=== PATIENT | female | born 1985 | race Caucasian/White ===

== ENCOUNTER 2021-04-26 09:47 | Outpatient (REF) | payer OTHER, SELFPAY | END 2021-04-26 09:48 | disposition home or self-care (01) | LOC: HO.HMGCLDS 09:47 | PROVIDERS: Visit Provider Internal Medicine | DX: Z20.822 Contact with and (suspected) exposure to COVID-19 (principal) | CPT/HCPCS: C9803; U0003; U0005 ==

== ENCOUNTER 2022-03-01 13:55 | Outpatient (REF) | payer OTHER, SELFPAY ==
[2022-03-01 16:35] LABS: MANUAL DIFF FLAG NO
[2022-03-01 16:41] LABS: Appearance Urine Clear; Color Urine Yellow; Glucose Urine UA Negative (Negative); Leukocyte Esterase Urine Negative (Negative); Nitrite Urine Negative (Negative); Specific Gravity - Urine 1.025 (1.005-1.025); UMIC TRIGGER UACC YES; Urine Blood Moderate (2+) (Negative); Urine Ketones Negative (Negative); Urine Protein Negative (Neg-Trace)
[2022-03-01 16:46] LABS: Basophils Percent Auto 0.6 % (0-2); Eosinophils Absolute Auto 0.2 X10*3/uL (0.0-0.4); Eosinophils Percent Auto 2.2 % (0-4); Hematocrit 37.1 % (37.0-47.0); Hemoglobin 12.3 g/dl (12.0-16.0); Imm Gran Abs Auto 0.05 X10*3/uL (0.00-0.03); Imm Gran Pct Auto 0.7 % (0.0-0.4); Lymphocytes Absolute Auto 2.6 X10*3/uL (1.2-4.9); Mean Corpuscular HGB Conc 33.2 g/dl (31.0-35.0); Mean Corpuscular Hemoglobin 29.5 pg (27.0-33.0); Mean Platelet Volume 9.7 fL (9.4-12.3); Monocytes Absolute Auto 0.5 X10*3/uL (0.1-1.2); Monocytes Percent Auto 6.6 % (2-11); Neutrophils Absolute Auto 3.5 x10*3/uL (2.0-8.3); Neutrophils Percent Auto 51.9 % (45-73); Platelet Count 307 X10*3/uL (160-400); Red Blood Count 4.17 X10*6/uL (4.20-5.50); Red Cell Distribution Width 13.2 % (11.0-16.0); White Blood Count 6.8 X10*3/uL (4.8-10.8)
[2022-03-01 16:58] LABS: Bacteria Urine None Seen (None Seen); Hyaline Casts Urine 0-2 /LPF (0-2); Squamous Epithelial Cell Urine 0-2 /HPF (0-2); WBC Urine 0-5 /HPF (0-5)
[2022-03-01 16:59] LABS: Alanine Aminotransferase 24 U/L (0-31); Albumin Level 4.3 g/dL (3.5-5.0); Alkaline Phosphatase 78 U/L (39-117); Anion Gap 15 (12-20); Aspartate Amino Transferase 20 U/L (5-31); Bilirubin Total 0.2 mg/dL (0.0-1.0); Blood Urea Nitrogen 13 mg/dL (9-16); Carbon Dioxide 24 mmol/L (22-29); Chloride 104 mmol/L (96-108); Cholesterol 221 mg/dL; Estimated Glomerular Filt Rate > 60; Glucose Fasting 118 mg/dL (60-99); HDL Cholesterol 36 mg/dL; LDL Cholesterol Calculated 159 mg/dl; Potassium 4.1 mmol/L (3.3-5.1); Sodium 139 mmol/L (135-145); Total Protein 6.8 g/dL (6.5-8.0); Triglycerides 134 mg/dL
[2022-03-01 17:21] LABS: TSH reflex Free T4 1.33 uIU/mL (0.32-4.0)
== END 2022-03-01 13:56 | disposition home or self-care (01) ==
LOC: HO.HMGCLDS 13:55
PROVIDERS: PCP Nurse Practitioner Family; Visit Provider Nurse Practitioner Family
DX: Z00.00 Encounter for general adult medical examination without abnormal findings (principal)
CPT/HCPCS: 36415; 80053; 80061; 81001; 84443; 85025

== ENCOUNTER → 2022-03-03 12:43 | Outpatient (REF) | payer OTHER, SELFPAY ==
--- NOTE | ~2022-03-03 | US_ITS ---
EXAMINATION: US SOFT TISSUE NECK CLINICAL INFORMATION: Localized swelling, mass and lump, neck. COMPARISON: None TECHNIQUE: Ultrasound of the right posterior cervical region is performed using a high-resolution linear transducer. FINDINGS: Within the region of palpable concern in the right neck, there is a somewhat reniform shaped 1 x 0.4 x 0.5 cm hypoechoic structure that appears to represent a lymph node which, at its mid third, has cortical thickness of 0.3 cm. Note that normal lymph nodes can have a maximum cortical thickness of 0.3 cm (see saved renee image). The color Doppler images show mild internal vascularity of the structure. The surrounding soft tissues have normal echotexture. No soft tissue edema or fluid collection. US/US soft tiss head and/or neck IMPRESSION: A small level 5A lymph node is present within the right neck. The could either represent a normal lymph node or mildly reactive lymph node. This lymph node could be followed clinically. If over time there is any suspicion for madison enlargement, a follow-up ultrasound may be performed.
--- NOTE | 2022-03-03 12:45 | CA_ITS ---
Transthoracic Echocardiogram Patient (Last, First, Middle): Bella Minaya, Gender: Female Date of : 1985 Age: 36 Procedure Date: 03/03/2022 Procedure Type: Transthoracic Echocardiogram Location: OP Height: 157.48 cm Weight: 124.74 kg BSA: 2.19 m2 Heart Rate: 74 bpm BP: 124 / 74 mmHg Massage Therapist: SB Referring MD: Anrel Tamayo [facility] Freight Sales Broker: Filipe Parks MD Symptoms: R01.1 - Cardiac murmur, unspecified Study Quality: Fair w contrast ECG Rhythm: Sinus Conclusions: - Essentially normal study Findings Procedure Information Contrast agent, definity, is being given per protocol without apparent complications. Left Ventricle Normal left ventricular size, thickness, and systolic function. The visually estimated ejection fraction is between 60-65%. Diastolic function is normal for age. Right Ventricle Normal right ventricular cavity size. Atria The left atrium is normal in size. Interatrial shunt cannot be excluded. The right atrium was not well visualized. Aortic Valve Normal aortic valve structure and function. There is no aortic valve stenosis. There is no aortic valve regurgitation. Mitral Valve Likely normal mitral valve structure and function. There is trace mitral valve regurgitation. There is no mitral valve stenosis. Pulmonic Valve The pulmonic valve was not well visualized. Tricuspid Valve Likely normal tricuspid valve structure and function. Tricuspid regurgitation envelope is inadequate for calculation of right ventricular systolic pressure. Normal right atrial pressure. Great Vessels All visible segments of the aorta are normal in size. The pulmonary artery was not well visualized. Venous The inferior vena cava is normal in size and collapses greater than 50% with inspiration. Pericardium/Pleural There is no evidence of pericardial effusion. Prior Study Comparison No prior study available for comparison. Measurements 2D Linear Measurements IVSd: 0.82 0.6-0.9/0.6-1.0 cm LVIDd: 5.07 3.9-5.3/4.2-5.9 cm LVIDd Index: 2.32 2.4-3.2/2.2-3.1 cm/m2 LVIDs: 3.02 2.0-3.6 cm LVPWd: 0.75 0.7-1.1 cm LA Diam: 4.00 2.7-3.8/3.0-4.0 cm LAIDs Index: 1.83 1.5-2.3 cm/m2 LV Mass: 168.93 67-162/88-224 g LV Mass Index: 77.14 43-95/49-115 g/m2 LVOT Diam: 2.00 3.0+(-)1.3 cm 2D Systolic Function EF 4C: 66.90 >55% EF 2C: 64.50 >55% EF BiP: 65.20 >55% Mitral Valve MV Pk E: 1.04 MV PK A: 0.60 MV Decel Time: 177.00 E/A: 1.70 E'Lateral: 19.80 E'Medial: 9.03 E/E' Med: 11.50 E/E' Lat: 5.30 PHT: 52.00 MVA PHT: 4.23 Decel [place]: 5.87 Aortic Valve AoV Pk Hunter: 1.43 AoV Mn Hunter: 0.97 AoV VTI: 0.29 AoV Pk Grad: 8.00 Aov Mn Grad: 4.00 NARA Cont.VTI: 2.20 LVOT LVOT Pk Hunter: 1.04 LVOT Mn Hunter: 0.73 LVOT VTI: 0.20 LVOT Pk Grad: 4.00 LVOT Mn Grad: 2.00 LVOT Diam: 2.00 LVOT Area: 3.14 Diastolic Function MV Pk E: 1.04 MV Pk A: 0.60 E/A: 1.70 E'Medial: 9.03 E/E' Med: 11.50 E' Laterial: 19.80 E/E' Lat: 5.30 Right Ventricle TVS' Hunter: 12.40 Tricuspid Valve RA Press: 3.00 Great Vessels Aorta Sinus of Valsalva: 2.50 2.0-3.5 cm Ao Asc: 2.40 2.1-3.4 cm Pulmonary Valve PV Pk Hunter: 1.72 Peak PV Grad: 12.00 Updated in Other Vendor System with Status of Final Filipe Parks MD electronically signed on 03/04/2022 10:47:53 AM with status of Final
== END ==
LOC: HO.CARD 12:43
PROVIDERS: PCP Nurse Practitioner Family; Visit Provider Nurse Practitioner Family
DX: R22.1 Localized swelling, mass and lump, neck (principal); R01.1 Cardiac murmur, unspecified
CPT/HCPCS: 76536; 93306; Q9957

== ENCOUNTER 2023-04-27 16:23 | Outpatient (AMB) | payer OTHER, SELFPAY ==
--- NOTE | 2023-04-27 16:30 | MHC.PC.OV ---
Vital Signs 04/27/23 16:33 Height 5 ft 2 in Weight 257 lb BMI 47.0 BP 110/64 Blood Pressure Location Rt brachial Position Sitting Pulse 73 Pulse Source Pulse Oximeter Pulse Oximetry (%) 98 Oxygen Delivery Method Room Air Intake Visit Reasons: Annual PE Intake Note: Patient here for physical exam and would like to address the cold shes had for about 2 weeks. Last Pap: 03/2023 at [facility] Allergies No Known Allergies Allergy (Verified 04/27/23 16:33) Tobacco use date assessed: 07/18/22 Dental Screening Dental Screen Date: 04/27/23 Did you have a dental visit in the last 12 months?: Yes Did you have a dental problem in the last 6 months where you did not have access to dental care?: No Was dental information given to patient?: Patient has dentist HPI Annual PE HPI Details Pt is here for a PE. Will order labs. Has a account development representative. Labs were already previously ordered, encouraged she get these drawn in the near future [facility] Social History Housing: House Patient Tobacco Use Status: Never used Tobacco e-Cigarette/Vaping Use: Never Used Second Hand Smoke Exposure: No service: No Current occupational status: employed Current occupation: [employer] Current occupational exposures/hazards: No Cognitive needs: No Hearing needs: No Vision needs: Yes Questionnaire PHQ-9 Over the last 2 weeks, how often have you been bothered by any of the following problems? 1. Little interest or pleasure in doing things: more than half the days 2. Feeling down, depressed, or hopeless: several days 3. Trouble falling or staying asleep, or sleeping too much: not at all 4. Feeling tired or having little energy: several days 5. Poor appetite or overeating: more than half the days 6. Feeling bad about yourself - or that you are a failure or have let yourself or your family down: more than half the days 7. Trouble concentrating on things, such as reading the newspaper or watching television: several days 8. Moving or speaking so slowly that other people could have noticed. Or the opposite - being so fidgety or restless that you have been moving around a lot more than usual: several days 9. Thoughts that you would be better off or of hurting yourself in some way: not at all Total score: 10 Depression Screening Interpretation: Positive Depression Screening Done: Yes 51293 - PHQ-9 Billing: Yes Source: Developed by Drs. Saroj Parmar, Cheri Grewal, Feng Harris and colleagues, with an educational brent from [employer]. Thrive Questionnaire Date Thrive assessed: 04/27/23 I am a: Patient What is your living situation today?: I have a steady place to live Within the past 12 months, did the food you bought not last and you didn't have the money to get more?: Never true Within the past 12 months, did you worry whether your food would run out before you got money to buy more?: Never true Do you have trouble paying for medicines?: No Do you have trouble getting transportation to medical appointments?: No Do you have trouble paying your heating and electricity bill?: No Do you have trouble taking care of your child, family member or friend?: No Do you have trouble with day-to-day activities such as bathing, preparing meals, shopping, managing finances, etc.?: No Are you currently unemployed and looking for a job?: No Are you interested in more education?: No AUDIT C Alcohol Use Questionnaire (AUDIT-C) 1. How often do you have a drink containing alcohol?: 2-3 times a week 2. How many drinks containing alcohol do you have on a typical day when you are drinking?: 1 or 2 3. How often do you have six or more drinks on one occasion?: Never Total Score: 3 Score Reviewed/Action Taken: No EYAD-7 AMB Questionnaire EYAD-7 Date EYAD - 7 assessed: 04/27/23 Feeling nervous, anxious, or on edge: 1 = Several days Not being able to stop or control worryin = Several days Worrying too much about different things: 2 = More than half the days Trouble relaxin = Not at all Being so restless that it is hard to sit still: 1 = Several days Becoming easily annoyed or irritable: 2 = More than half the days Feeling afraid as if something awful might happen: 0 = Not at all Total EYAD-7 score (0-4 normal; 5-9 mild; 10-14 moderate; 15-21 severe): 7 Source: Developed by Drs. Saroj Parmar, Cheri Grewal, Feng Harris and colleagues, with an educational brent from [employer]. EYAD-7 Assessment Billing EYAD-7 Assessment Tool: EYAD-7 Assessment 28526 Review of Systems Const Denies chills and Denies fever(s) Eyes Denies blurry vision ENT Denies vertigo, Denies dizziness and Denies sore throat Card Denies chest pain at rest, Denies chest pain with activity, Denies diaphoresis, Denies dyspnea and Denies dyspnea on exertion Resp Denies cough, Denies dyspnea, Denies dyspnea on exertion and Denies wheezing GI Denies abdominal pain, Denies melena, Denies hematochezia, Denies constipation, Denies diarrhea and Denies loose stools Denies hematuria Musc Denies numbness and Denies tingling Skin/Breast Denies lesions Neuro Denies vertigo, Denies dizziness, Denies numbness and Denies tingling Psych Denies anxiety, Denies depression, Denies homicidal ideation, Denies suicidal ideation and Denies other (substance abuse) Aller/Immun Denies wheezing Physical exam (Primary Care) Vital Signs: Last Vital Signs Pulse 73 04/27/23 16:33 BP 110/64 04/27/23 16:33 Pulse Ox 98 04/27/23 16:33 Oxygen Delivery Method Room Air 04/27/23 16:33 BMI result Body Mass Index 47.0 Tobacco/Smoking Status: Tobacco use Status Tobacco use date assessed 07/18/22 04/27/23 16:30 Patient Tobacco Use Status Never used Tobacco 04/27/23 16:30 e-Cigarette/Vaping Use Never Used 04/27/23 16:30 PHQ-9: PHQ-9 Score PHQ-9: Total score 10 04/27/23 17:02 Depression Screening Interpretation: Positive Thrive Assessment: Date of Thrive Assessment Date Thrive assessed 04/27/23 04/27/23 17:02 Const General: cooperative Nutritional Appearance: well nourished Orientation/consciousness: patient oriented x3 HENMT Head: Yes normal to inspection, Yes normocephalic and Yes atraumatic Ears: TM's normal bilaterally Eyes General: appearance normal, both eyes and all related structures Alignment and Position: alignment normal and position normal Neck Neck: Yes normal visual inspection and Yes no lymphadenopathy Thyroid: Thyroid normal Resp Effort & Inspection: normal respiratory effort Auscultation: clear to auscultation bilaterally Cardio Rate: regular rate Rhythm: regular rhythm Heart sounds: S1 normal heart sound present, S2 normal heart sound present and no murmurs GI Palpation (GI): Soft to palpation and nontender Auscultation: normal bowel sounds Skin Rashes: no rashes Neuro General: patient oriented x3, moves all extremities, no focal motor deficits and deep tendon reflexes 2+ bilaterally Romberg Test: Negative Psych Appearance: grossly normal Mental Status: mental status grossly normal Speech and movement: Normal speech and movement present Affect: normal affect Attitude: cooperative Thought process: Normal thought process present Thought content: Normal thought content present Insight: Good insight present (Psych) Judgement: Good judgement present (Psych) Assessment and Plan Assessment & Plan (1) Physical exam: Code(s): Z00.00 - Encounter for general adult medical examination without abnormal findings Coding Level of Care Code Est Pt Prev Care 18-39y(64600) Diagnoses Physical exam Z00.00 Additional Codes EYAD-7 Assessment Billing - EYAD-7 Assessment Tool: EYAD-7 Assessment 88430 ([id number])
[2023-04-27 16:33] VITALS: BP 110/64; PULSE 73; O2SAT 98; BMI 47.0
== END 2023-04-27 17:00 | disposition home or self-care (01) ==
PROVIDERS: PCP Nurse Practitioner Family; Visit Provider Nurse Practitioner Family
DX: Z00.00 Encounter for general adult medical examination without abnormal findings (principal)
CPT/HCPCS: 99395

== ENCOUNTER 2023-09-04 08:30 | Outpatient (AMB) | payer OTHER, SELFPAY ==
--- NOTE | 2023-09-04 07:23 | A.OFFPC_ITS ---
Intake Visit Reasons: [facility] neuropsychology director referral Allergies No Known Allergies Allergy (Verified 09/04/23 07:31) Medication List - Last Reconciled 09/04/23 by LISSETH Sandoval cetirizine 10 mg PO DAILY PRN magnesium 300 mg PO DAILY Tobacco use date assessed: 07/18/22 Dental Screening Dental Screen Date: 04/27/23 HPI [facility] neuropsychology director referral HPI Details Dyslipidemia: Pt's last lipids were elevated. Pt would like to work on her diet. She would like to see a neuropsychology director, will refer. Will repeat labs in 2 months. Denies chest pain, shortness of breath, and dizziness. [facility] Social History Housing: House Patient Tobacco Use Status: Never used Tobacco e-Cigarette/Vaping Use: Never Used Second Hand Smoke Exposure: No service: No Current occupational status: employed Current occupation: [employer] Current occupational exposures/hazards: No Cognitive needs: No Hearing needs: No Vision needs: Yes Questionnaire Thrive Questionnaire Date Thrive assessed: 04/27/23 EYAD-7 AMB Questionnaire EYAD-7 Date EYAD - 7 assessed: 04/27/23 Source: Developed by Drs. Saroj Parmar, Cheri Grewal, Feng Harris and colleagues, with an educational brent from [employer]. Review of Systems Const Reports as per HPI Physical exam (Primary Care) Tobacco/Smoking Status: Tobacco use Status Tobacco use date assessed 07/18/22 09/04/23 07:27 Patient Tobacco Use Status Never used Tobacco 09/04/23 07:27 e-Cigarette/Vaping Use Never Used 09/04/23 07:27 Thrive Assessment: Date of Thrive Assessment Date Thrive assessed 04/27/23 09/04/23 07:27 Const General: cooperative Orientation/consciousness: patient oriented x3 Neuro General: patient oriented x3 Psych Appearance: grossly normal Mental Status: mental status grossly normal Speech and movement: Clear speech present Affect: normal affect Attitude: cooperative Thought process: Normal thought process present Thought content: Normal thought content present Insight: Good insight present (Psych) Judgement: Good judgement present (Psych) Telehealth Telehealth Telehealth Platform: [facility] Location of provider rendering services: practice address Location of patient: address on file Patient Identification confirmed using: Name, : Yes Telehealth method: video Patient verbally consented to treatment: Yes Patient verbally consented to billing insurance company: Yes Patient informed of any privacy concerns related to visit: Yes Minutes spent on Phone/Video with Pt.: 10 Assessment and Plan Assessment & Plan (1) Dyslipidemia: Code(s): E78.5 - Hyperlipidemia, unspecified Plan: Referred to nurtritionist Plan The patient agreed to the use of a medical attendant for this encounter. Scribed for LISSETH Meyer by Elise Carbajal medical attendant, on 09/04/2023 at 07:20 EST. Orders: Orders Complete Blood Count Auto Diff Today E78.5 - Hyperlipidemia, unspecified Comprehensive [place]. Panel Fast Today E78.5 - Hyperlipidemia, unspecified TSH reflex Free T4 Today E78.5 - Hyperlipidemia, unspecified UA CC w/rflx Micro + Cult Today E78.5 - Hyperlipidemia, unspecified Lipid Panel Today E78.5 - Hyperlipidemia, unspecified Referrals [employer] Nutrition Referral E66.9 - Obesity, unspecified, E78.5 - Hyperlipidemia, unspecified Coding Level of Care Code Tele Est Pt Level 3 (94246) Diagnoses Dyslipidemia E78.5
== END 2023-09-04 08:37 | disposition home or self-care (01) ==
LOC: HO.HMGC 08:30
PROVIDERS: PCP Nurse Practitioner Family; Visit Provider Nurse Practitioner Family
DX: E78.5 Hyperlipidemia, unspecified (principal)
CPT/HCPCS: 99213

== ENCOUNTER 2023-09-26 14:28 | Outpatient (AMB) | payer OTHER, SELFPAY ==
[2023-09-26 14:32] VITALS: BMI 48.3
--- NOTE | 2023-09-26 14:32 | A.OFFVIS_ITS ---
VS Expanded 09/26/23 14:32 09/26/23 14:53 Height 5 ft 2 in 5 ft 2 in Weight 264 lb 5.348 oz 264 lb BMI 48.3 48.3 Intake Visit Reasons: Hyperlipidemia, Obesity/CONFIRMED Allergies No Known Allergies Allergy (Verified 09/04/23 07:31) Nutrition Presentation Details: Pt presents for MNT for Hyperlipidemia, obesity. The Pt was referred by PCP, Pino Tamayo Pt also has IFG t BS Monitoring Most Recent Diabetes Results: Cholesterol 221 mg/dL 03/01/22 HDL Cholesterol 36 mg/dL 03/01/22 Triglycerides 134 mg/dL 03/01/22 Creatinine 0.74 mg/dL (0.5-1.4) 03/01/22 Blood Urea Nitrogen 13 mg/dL (9-16) 03/01/22 Sodium 139 mmol/L (135-145) 03/01/22 Potassium 4.1 mmol/L (3.3-5.1) 03/01/22 Chloride 104 mmol/L (96-108) 03/01/22 Carbon Dioxide 24 mmol/L (22-29) 03/01/22 Calcium 9.0 mg/dL (8.4-10.2) 03/01/22 AST 20 U/L (5-31) 03/01/22 ALT 24 U/L (0-31) 03/01/22 Total Protein 6.8 g/dL (6.5-8.0) 03/01/22 Albumin 4.3 g/dL (3.5-5.0) 03/01/22 BCN-Jypgxuk-Il.Jeor Equation Height: 5 ft 2 in Weight: 264 lb Resting Metabolic Rate: 1837.50 Calculated Activity Level: Sedentary Calories Needed to Maintain Weight: 2205.00 Diagnosis Nutrition problem #1: altered nutrition labs As related to (etiology) #1: diagnosis As evidenced by (sign/symptom) #1: knowledge deficit of diet Monitoring/Goals Nutrition problem monitoring: level of knowledge/skill and weight Nutrition goal/outcome: wt gain 5lbs in 2 months and list 3 high fiber foods Learning/Education Readiness to learn: good PFSH Social History Housing: House Patient Tobacco Use Status: Never used Tobacco e-Cigarette/Vaping Use: Never Used Second Hand Smoke Exposure: No service: No Current occupational status: employed Current occupation: [employer] Current occupational exposures/hazards: No Cognitive needs: No Hearing needs: No Vision needs: Yes Assessment & Plan Assessment & Plan (1) Obesity: Code(s): E66.9 - Obesity, unspecified Category: Medical Plan: Wt: 120 Kg ( 09/2023 ) Est kcal needs as per MSJ: 2200 (40% carb, 30% protein/fat) Est fluid needs as per 25-30 ml/d: 3600 Est prot per day as per 1 g/kg bw: 120 Recommend fiber intake : 8-10 g per day and gradually increase to 25-28 g per day for women and 35-38 g for men or as tolerated Recommend sodium intake per day : less than 2000 mg Educated patient on: ( R = reviewed V = verbalizes understanding N/R = needs review N/A = not applicable * Food sources of carbohydrate, adequate serving sizes and its role in various health conditions: R * Differences between complex carbohydrates a simple carbohydrates, role of fiber in diet: R * Lean protein sources of foods: R * Differences between types of fats and role in diet (mono on saturated fat fatty acids, saturated fatty acids, trans fats): R V N/R * Food sources of sodium in salt and healthy modifications for heart health in kidney health: R V R/V * Vitamins and minerals: R V N/R * Healthy plate method concept: R * Physical activity: Benefits a precaution: R V N/R * Hypoglycemia protocol (rule of 15): R V N/R * Dietary prevention of Hyperglycemia: R Patient Instructions: Practice mindful eating Follow healthy plate method at dinner reduce carb at meals to less than 60 g Coding Level of Care Code Nutr Indiv Intake (73566) Diagnoses Obesity E66.9 Time Spent (min) 30
[2023-10-05 21:41] VITALS: BMI 48.3
== END 2023-09-26 15:12 | disposition home or self-care (01) ==
PROVIDERS: PCP Nurse Practitioner Family; Visit Provider Dietitian, Registered
DX: E66.9 Obesity, unspecified (principal)

== ENCOUNTER → 2023-09-26 14:28 | Outpatient (BNVA) | payer OTHER, SELFPAY | PROVIDERS: PCP Nurse Practitioner Family; Visit Provider Dietitian, Registered | DX: E66.9 Obesity, unspecified (principal); Z68.42 Body mass index [BMI] 45.0-49.9, adult; Z71.3 Dietary counseling and surveillance | CPT/HCPCS: 97802 ==

== ENCOUNTER 2023-11-14 14:30 | Outpatient (AMB) | payer OTHER, SELFPAY ==
[2023-11-14 14:46] VITALS: BMI 47.4
--- NOTE | 2023-11-14 14:46 | MHC.AMNUTRGE ---
VS Expanded 11/14/23 14:46 Height 5 ft 2 in Weight 259 lb 4.218 oz BMI 47.4 Intake Visit Reasons: HYPERLIPIDIMIA, OBESITY/LVM Allergies No Known Allergies Allergy (Verified 09/04/23 07:31) Nutrition Presentation Details: Pt presents for MNT f/u for obesity Pt reports working on modifications BS Monitoring Most Recent Diabetes Results: Cholesterol 221 mg/dL 03/01/22 HDL Cholesterol 36 mg/dL 03/01/22 Triglycerides 134 mg/dL 03/01/22 Creatinine 0.74 mg/dL (0.5-1.4) 03/01/22 Blood Urea Nitrogen 13 mg/dL (9-16) 03/01/22 Sodium 139 mmol/L (135-145) 03/01/22 Potassium 4.1 mmol/L (3.3-5.1) 03/01/22 Chloride 104 mmol/L (96-108) 03/01/22 Carbon Dioxide 24 mmol/L (22-29) 03/01/22 Calcium 9.0 mg/dL (8.4-10.2) 03/01/22 AST 20 U/L (5-31) 03/01/22 ALT 24 U/L (0-31) 03/01/22 Total Protein 6.8 g/dL (6.5-8.0) 03/01/22 Albumin 4.3 g/dL (3.5-5.0) 03/01/22 [facility] Social History Housing: House Patient Tobacco Use Status: Never used Tobacco e-Cigarette/Vaping Use: Never Used Second Hand Smoke Exposure: No service: No Current occupational status: employed Current occupation: [employer] Current occupational exposures/hazards: No Cognitive needs: No Hearing needs: No Vision needs: Yes Assessment & Plan Assessment & Plan (1) Obesity: Code(s): E66.9 - Obesity, unspecified Category: Medical Plan: Wt: 120 Kg ( 09/2023 ), 118 kg(11/2023) Est kcal needs as per MSJ: 2200 (40% carb, 30% protein/fat) Est fluid needs as per 25-30 ml/d: 3500 Est prot per day as per 1 g/kg bw: 120 Recommend fiber intake : 8-10 g per day and gradually increase to 25-28 g per day for women and 35-38 g for men or as tolerated Recommend sodium intake per day : less than 2000 mg Educated patient on: ( R = reviewed V = verbalizes understanding N/R = needs review N/A = not applicable Food sources of carbohydrate, adequate serving sizes and its role in various health conditions: R Differences between complex carbohydrates a simple carbohydrates, role of fiber in diet: R Lean protein sources of foods: R Differences between types of fats and role in diet (mono on saturated fat fatty acids, saturated fatty acids, trans fats): R V N/R Food sources of sodium in salt and healthy modifications for heart health in kidney health: R V R/V Vitamins and minerals: R V N/R Healthy plate method concept: R Physical activity: Benefits a precaution: R Patient Instructions: Engage in physical activity start with 10 min daily and gradually increase to 30 min 3-4 times a week continue working on mindful eating strategies , following healthy plate method Coding Level of Care Code Nutr Indiv Subseq (12253) Diagnoses Obesity E66.9 Time Spent (min) 30
== END 2023-11-14 15:13 | disposition home or self-care (01) ==
PROVIDERS: PCP Nurse Practitioner Family; Visit Provider Dietitian, Registered
DX: E66.9 Obesity, unspecified (principal)

== ENCOUNTER → 2023-11-14 14:30 | Outpatient (BNVA) | payer OTHER, SELFPAY | PROVIDERS: PCP Nurse Practitioner Family; Visit Provider Dietitian, Registered | DX: E66.9 Obesity, unspecified (principal); Z68.42 Body mass index [BMI] 45.0-49.9, adult; Z71.3 Dietary counseling and surveillance | CPT/HCPCS: 97803 ==

== ENCOUNTER 2024-01-09 14:37 | Outpatient (AMB) | payer OTHER, SELFPAY ==
[2024-01-09 14:41] VITALS: BMI 47.6
--- NOTE | 2024-01-09 14:41 | A.OFFVIS_ITS ---
VS Expanded 01/09/24 14:41 Height 5 ft 2 in Weight 260 lb 5.855 oz BMI 47.6 Intake Visit Reasons: hyperlipidemia/Obesity/CONFIRMED Allergies No Known Allergies Allergy (Verified 09/04/23 07:31) Nutrition Presentation Details: Pt presents for MNT f/u for obesity Pt reports incorporating physical activity, gradually for 20 min in the past week (stretches. yoga) Reports working on meal preparation, challenges with schedules BS Monitoring Most Recent Diabetes Results: Cholesterol 221 mg/dL 03/01/22 HDL Cholesterol 36 mg/dL 03/01/22 Triglycerides 134 mg/dL 03/01/22 Creatinine 0.74 mg/dL (0.5-1.4) 03/01/22 Blood Urea Nitrogen 13 mg/dL (9-16) 03/01/22 Sodium 139 mmol/L (135-145) 03/01/22 Potassium 4.1 mmol/L (3.3-5.1) 03/01/22 Chloride 104 mmol/L (96-108) 03/01/22 Carbon Dioxide 24 mmol/L (22-29) 03/01/22 Calcium 9.0 mg/dL (8.4-10.2) 03/01/22 AST 20 U/L (5-31) 03/01/22 ALT 24 U/L (0-31) 03/01/22 Total Protein 6.8 g/dL (6.5-8.0) 03/01/22 Albumin 4.3 g/dL (3.5-5.0) 03/01/22 PFSH Social History Housing: House Patient Tobacco Use Status: Never used Tobacco e-Cigarette/Vaping Use: Never Used Second Hand Smoke Exposure: No service: No Current occupational status: employed Current occupation: [employer] Current occupational exposures/hazards: No Cognitive needs: No Hearing needs: No Vision needs: Yes Assessment & Plan Assessment & Plan (1) Obesity: Code(s): E66.9 - Obesity, unspecified Category: Medical Plan: Wt: 120 Kg ( 09/2023 ), 118 kg(11/2023), 118 kg (01/2024) Est kcal needs as per MSJ: 2200 (40% carb, 30% protein/fat) Est fluid needs as per 25-30 ml/d: 3500 Est prot per day as per 1 g/kg bw: 120 Recommend fiber intake : 8-10 g per day and gradually increase to 25-28 g per day for women and 35-38 g for men or as tolerated Recommend sodium intake per day : less than 2000 mg Educated patient on: ( R = reviewed V = verbalizes understanding N/R = needs review N/A = not applicable * Food sources of carbohydrate, adequate serving sizes and its role in various health conditions: R * Differences between complex carbohydrates a simple carbohydrates, role of fiber in diet: R * Lean protein sources of foods: R * Differences between types of fats and role in diet (mono on saturated fat fatty acids, saturated fatty acids, trans fats): R V N/R * Food sources of sodium in salt and healthy modifications for heart health in kidney health: R V R/V * Vitamins and minerals: R V N/R * Healthy plate method concept: R * Physical activity: Benefits a precaution: R Patient Instructions: Continue engaging in physical activity in a consistent manner , goal 150 min/week Continue working on following healthy plate method Coding Level of Care Code Nutr Indiv Subseq (48914) Diagnoses Obesity E66.9 Time Spent (min) 30
== END 2024-01-09 15:09 | disposition home or self-care (01) ==
PROVIDERS: PCP Nurse Practitioner Family; Visit Provider Dietitian, Registered
DX: E66.9 Obesity, unspecified (principal)

== ENCOUNTER → 2024-01-09 14:37 | Outpatient (BNVA) | payer OTHER, SELFPAY | PROVIDERS: PCP Nurse Practitioner Family; Visit Provider Dietitian, Registered | DX: E66.9 Obesity, unspecified (principal); Z68.42 Body mass index [BMI] 45.0-49.9, adult; Z71.3 Dietary counseling and surveillance | CPT/HCPCS: 97803 ==

== ENCOUNTER 2024-03-11 14:31 | Outpatient (AMB) | payer OTHER, SELFPAY ==
[2024-03-11 14:45] VITALS: BMI 46.2
--- NOTE | 2024-03-11 14:45 | A.OFFVIS_ITS ---
VS Expanded 03/11/24 14:45 Height 5 ft 2 in Weight 252 lb 6.868 oz BMI 46.2 Intake Visit Reasons: high chol/LVM Allergies No Known Allergies Allergy (Verified 09/04/23 07:31) Nutrition Presentation Details: Pt presents for MNT f/u for obesity Pt reports trying 2 meal replacements a day and following healthy plate method at dinner along with Pt reports feeling constipated, 2-3 days without BM fluid intake: 16 oz/day BS Monitoring Most Recent Diabetes Results: No Data to Display IAF-Xthroix-LdFlorin Equation Height: 5 ft 5 in Weight: 252 lb Resting Metabolic Rate: 1830.74 Calculated Activity Level: Sedentary Calories Needed to Maintain Weight: 2196.89 [facility] Social History Housing: House Patient Tobacco Use Status: Never used Tobacco e-Cigarette/Vaping Use: Never Used Second Hand Smoke Exposure: No service: No Current occupational status: employed Current occupation: [employer] Current occupational exposures/hazards: No Cognitive needs: No Hearing needs: No Vision needs: Yes Assessment & Plan Assessment & Plan (1) Obesity: Code(s): E66.9 - Obesity, unspecified Category: Medical Plan: Wt: 120 Kg ( 09/2023 ), 118 kg(11/2023), 118 kg (01/2024), 114 kg (03/31) Est kcal needs as per MSJ: 2200 (40% carb, 30% protein/fat) Est fluid needs as per 25-30 ml/d: 3400 Est prot per day as per 1 g/kg bw: 115 Recommend fiber intake : 8-10 g per day and gradually increase to 25-28 g per day for women and 35-38 g for men or as tolerated Recommend sodium intake per day : less than 2000 mg Educated patient on: ( R = reviewed V = verbalizes understanding N/R = needs review N/A = not applicable * Food sources of carbohydrate, adequate serving sizes and its role in various health conditions: R * Differences between complex carbohydrates a simple carbohydrates, role of fiber in diet: R * Lean protein sources of foods: R * Differences between types of fats and role in diet (mono on saturated fat fatty acids, saturated fatty acids, trans fats): R V * Food sources of sodium in salt and healthy modifications for heart health in kidney health: R * Vitamins and minerals: R V N/R * Healthy plate method concept: R * Physical activity: Benefits a precaution: R * hydration: R Patient Instructions: Increase fluids to Increase fluids 16 oz additional per day , increase movement, walk 30 minutes 4 times/wk Coding Level of Care Code Nutr Indiv Subseq (61064) Diagnoses Obesity E66.9 Time Spent (min) 15
[2024-03-13 10:49] VITALS: BMI 41.9
== END 2024-03-11 15:02 | disposition home or self-care (01) ==
LOC: HO.ENCR 14:32
PROVIDERS: PCP Nurse Practitioner Family; Visit Provider Dietitian, Registered
DX: E66.9 Obesity, unspecified (principal)

== ENCOUNTER → 2024-03-11 14:31 | Outpatient (BNVA) | payer OTHER, SELFPAY | PROVIDERS: PCP Nurse Practitioner Family; Visit Provider Dietitian, Registered | DX: E66.9 Obesity, unspecified (principal); Z68.42 Body mass index [BMI] 45.0-49.9, adult; Z71.3 Dietary counseling and surveillance | CPT/HCPCS: 97803 ==

== ENCOUNTER 2024-05-14 14:18 | Outpatient (AMB) | payer OTHER, SELFPAY ==
[2024-05-14 14:43] VITALS: BMI 40.6
--- NOTE | 2024-05-14 14:43 | A.OFFVIS_ITS ---
VS Expanded 05/14/24 14:43 05/15/24 11:56 Height 5 ft 5 in 5 ft 5 in Weight 244 lb 4.355 oz 244 lb BMI 40.6 40.6 Intake Visit Reasons: Obesity/Left vm Allergies No Known Allergies Allergy (Verified 09/04/23 07:31) Nutrition Presentation Details: Pt presents for MNT f/u for obesity Pt reports getting used to making healthier meals and reading food labels and finding variety of foods she enjoys and learning to like pt c/of random nauseous feelings , reports in the past having hx of anemia with similar sx food frequency beef: 2 x/month beans: not including spinach/salads: 4 x/wk taking mvi: yes, daily vomiting/diarrhea- denies Physical activity: reports increasing physical activity, walking longer length of time or increasing speed of walk Reports overall feeling well, doing well BS Monitoring Most Recent Diabetes Results: No Data to Display SJO-Idesxwj-Wt.Jeor Equation Height: 5 ft 5 in Weight: 244 lb Resting Metabolic Rate: 1794.49 Calculated Activity Level: Sedentary Calories Needed to Maintain Weight: 2153.39 [facility] Social History Housing: House Patient Tobacco Use Status: Never used Tobacco e-Cigarette/Vaping Use: Never Used Second Hand Smoke Exposure: No service: No Current occupational status: employed Current occupation: [employer] Current occupational exposures/hazards: No Cognitive needs: No Hearing needs: No Vision needs: Yes Assessment & Plan Assessment & Plan (1) Obesity: Comment: RECOMMEND for PCP to monitor nutrition labs for deficiencies due to diet/weight loss/nausea: Please monitor for iron, b vitamins, mg, zinc, Vit A,, Vit C Vit D . Thank you Code(s): E66.9 - Obesity, unspecified Category: Medical Plan: Wt: 120 Kg ( 09/2023 ), 118 kg(11/2023), 118 kg (01/2024), 114 kg (03/31), 111kg (06/01) Est kcal needs as per MSJ: 2200 (40% carb, 30% protein/fat) Est fluid needs as per 25-30 ml/d: 3400 Est prot per day as per 1 g/kg bw: 115 Recommend fiber intake : 8-10 g per day and gradually increase to 25-28 g per day for women and 35-38 g for men or as tolerated Recommend sodium intake per day : less than 2300 mg Educated patient on: ( R = reviewed V = verbalizes understanding N/R = needs review N/A = not applicable * Food sources of carbohydrate, adequate serving sizes and its role in various health conditions: R * Differences between complex carbohydrates a simple carbohydrates, role of fiber in diet: R * Lean protein sources of foods: R * Differences between types of fats and role in diet (mono on saturated fat fatty acids, saturated fatty acids, trans fats): R V * Food sources of sodium in salt and healthy modifications for heart health in kidney health: R * Vitamins and minerals: R (including iron rich foods and vitamin c rich foods,) * Healthy plate method concept: R * Physical activity: Benefits a precaution: R * hydration: R * iron rich foods Patient Instructions: Include iron rich foods in your diet : beef 1-2 times/wk in adequate portion and accompanied with non starchy veg include dark leafy greens, beets, beans, lentils in the diet Continue working on choosing a variety of foods Coding Level of Care Code Nutr Indiv Subseq (39638) Diagnoses Obesity E66.9 Time Spent (min) 30
[2024-05-15 11:56] VITALS: BMI 40.6
== END 2024-05-14 15:11 | disposition home or self-care (01) ==
PROVIDERS: PCP Nurse Practitioner Family; Visit Provider Dietitian, Registered
DX: E66.9 Obesity, unspecified (principal)

== ENCOUNTER → 2024-05-14 14:18 | Outpatient (BNVA) | payer OTHER, SELFPAY | PROVIDERS: PCP Nurse Practitioner Family; Visit Provider Dietitian, Registered | DX: E66.9 Obesity, unspecified (principal); Z68.41 Body mass index [BMI] 40.0-44.9, adult; Z71.3 Dietary counseling and surveillance | CPT/HCPCS: 97803 ==

== ENCOUNTER 2024-05-16 09:46 | Outpatient (REF) | payer OTHER, SELFPAY ==
[2024-05-16 13:08] LABS: MANUAL DIFF FLAG NO
[2024-05-16 13:12] LABS: Appearance Urine Clear; Color Urine Yellow; Glucose Urine UA Negative (Negative); Leukocyte Esterase Urine Negative (Negative); Nitrite Urine Negative (Negative); PH 5.5 (5.0-9.0); Specific Gravity - Urine 1.025 (1.005-1.025); UMIC TRIGGER UACC YES; Urine Blood Moderate (2+) (Negative); Urine Ketones Negative (Negative); Urine Protein Negative (Neg-Trace)
[2024-05-16 13:26] LABS: Basophils Percent Auto 0.4 % (0-2); Eosinophils Absolute Auto 0.1 X10*3/uL (0.0-0.4); Eosinophils Percent Auto 2.1 % (0-4); Hematocrit 38.6 % (37.0-47.0); Hemoglobin 12.5 g/dl (12.0-16.0); Imm Gran Abs Auto 0.03 X10*3/uL (0.00-0.03); Imm Gran Pct Auto 0.5 % (0.0-0.4); Lymphocytes Absolute Auto 1.9 X10*3/uL (1.2-4.9); Lymphocytes Percent Auto 34.2 % (20-40); Mean Corpuscular HGB Conc 32.4 g/dl (31.0-35.0); Mean Corpuscular Hemoglobin 29.4 pg (27.0-33.0); Mean Corpuscular Volume 90.8 fL (80.0-98.0); Mean Platelet Volume 9.8 fL (9.4-12.3); Monocytes Absolute Auto 0.3 X10*3/uL (0.1-1.2); Monocytes Percent Auto 5.7 % (2-11); Neutrophils Absolute Auto 3.2 x10*3/uL (2.0-8.3); Neutrophils Percent Auto 57.1 % (45-73); Platelet Count 254 X10*3/uL (160-400); Red Blood Count 4.25 X10*6/uL (4.20-5.50); Red Cell Distribution Width 13.7 % (11.0-16.0); White Blood Count 5.7 X10*3/uL (4.8-10.8)
[2024-05-16 13:28] LABS: Bacteria Urine 1+ (None Seen); Hyaline Casts Urine 0-2 /LPF (0-2); Squamous Epithelial Cell Urine 0-2 /HPF (0-2); WBC Urine 0-5 /HPF (0-5)
[2024-05-16 13:51] LABS: Alanine Aminotransferase 28 U/L (0-31); Alkaline Phosphatase 59 U/L (39-117); Anion Gap 9 (12-20); Aspartate Amino Transferase 23 U/L (5-31); Bilirubin Total 0.4 mg/dL (0.0-1.0); Blood Urea Nitrogen 14 mg/dL (9-16); Calcium 9.1 mg/dL (8.4-10.2); Carbon Dioxide 26 mmol/L (22-29); Chloride 108 mmol/L (96-108); Cholesterol 206 mg/dL (<200); Estimated Glomerular Filt Rate > 60; Glucose Fasting 153 mg/dL (60-99); HDL Cholesterol 37 mg/dL (>40); Iron 80 mcg/dL (30-160); LDL Cholesterol Calculated 148 mg/dL (<100); Magnesium 2.1 mg/dL (1.6-2.6); Percent Iron Saturation 27 % (15-50); Potassium 4.2 mmol/L (3.3-5.1); Sodium 139 mmol/L (135-145); Total Iron Binding Capacity 301 mcg/dL (228-428); Total Protein 6.8 g/dL (6.5-8.0); Triglycerides 108 mg/dL (<150); Unsaturated Iron Binding 221 ug/dL
[2024-05-16 14:08] LABS: Ferritin 91 ng/mL (10-122); TSH reflex Free T4 1.04 uIU/mL (0.32-4.0); Vitamin D 25-OH Total 77.2 ng/mL (>30)
[2024-05-16 14:14] LABS: Vitamin B12 915 pg/mL (200-900)
[2024-05-20 04:06] LABS: Zinc 72 mcg/dL (60-130)
[2024-05-21 14:32] LABS: Vitamin A 51 mcg/dL (38-98)
[2024-05-23 06:03] LABS: Vitamin B1 7 nmol/L (8-30)
[2024-05-24 09:29] LABS: Vitamin B6 10.5 ng/mL (2.1-21.7)
== END 2024-05-16 09:47 | disposition home or self-care (01) ==
LOC: HO.HMGCLDS 09:46
PROVIDERS: PCP Nurse Practitioner Family; Visit Provider Nurse Practitioner Family
DX: E78.5 Hyperlipidemia, unspecified (principal); E66.9 Obesity, unspecified
CPT/HCPCS: 36415; 80053; 80061; 81001; 82306; 82607; 82728; 83540; 83735; 84207; 84425; 84443; 84590; 84630; 85025

== ENCOUNTER 2024-05-20 16:20 | Outpatient (AMB) | payer OTHER, SELFPAY ==
[2024-05-20 16:20] VITALS: BP 118/72; PULSE 74; O2SAT 98; BMI 40.9
--- NOTE | 2024-05-20 16:20 | A.OFFPC_ITS ---
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 Hand Required: No Accompanied by: Self / Same As Patient Allergies No Known Allergies Allergy (Verified 05/20/24 16:21) Medication List - Last Reconciled 05/20/24 by SHASTA Sandoval- atorvastatin 10 mg PO BEDTIME cetirizine 10 mg PO DAILY PRN lisinopril 2.5 mg PO DAILY 30 days magnesium 300 mg PO DAILY Tobacco use date assessed: 05/20/24 Dental Screening Dental Screen Date: 05/20/24 Did you have a dental visit in the last 12 months?: Yes Did you have a dental problem in the last 6 months where you did not have access to dental care?: No Was dental information given to patient?: Patient has dentist HPI PE HPI Details History of Present Illness The patient is a 38-year-old female presenting with Type 2 Diabetes Mellitus and Dyslipidemia. She was recently diagnosed with Type 2 Diabetes Mellitus following a fasting blood sugar test result of 153 mg/dL. This diagnosis is new for her. She reports no symptoms typical of diabetes such as polyuria, polydipsia, or neuropathy. Her current Hemoglobin A1c level is measured at 6.7%. Additionally, the patient has a history of Dyslipidemia noted in her recent labs, with an LDL cholesterol level of 148 mg/dL and a total cholesterol level of 206 mg/dL. She denies any family history of breast, colon, or pancreatic cancer. The patient is morbidly obese but has been actively managing her weight for the past year, with a reported weight loss of 30 pounds over the last six months. She is following up with an department operations manager, mainly a nutritional specialist, for her weight management. Health Maintenance - Discussion on the importance of yearly eye examinations. - Emphasized foot care to prevent compli cations from Diabetes. - No noted family history of breast, col on, or pancreatic cancer. - Initiated statin therapy due to Dyslip idemia. - Start of low-dose RIVAS inhibitor to add ress diabetes-related risks, with precautions on potential dizziness. - Reinforced the need for twice-daily bl ood glucose testing and recording. Social History - The patient is actively working on fredi ght management, confirmed by a 30-pound weight loss over the past six months. - Following a nutritional plan with pamela glass from a specialist. Review of Systems - General: Denies fever and chills. - Cardiovascular: Denies chest pain or s hortness of breath. - Neurological: Denies numbness or tingl ing. - Gastrointestinal: Denies blood in stoo l, constipation, diarrhea. - Genitourinary: Denies urinary problems . Physical Exam General: Cooperative, healthy appearing, comfortable, no acute distress and well developed, morbidly obese Orientation: Patient oriented x3 Limitations: No limitations Head: Normal to inspection Ears: Hearing grossly normal bilaterally Nose: Normal external nose present Face and sinus: Normal facial exam Eyes: Appearance normal, both eyes and all related structures Neck: Normal visual inspection and Yes full ROM Respiratory: Normal respiratory effort and able to speak in complete sentences. Clear to auscultation bilaterally Cardiovascular: Regular rate and rhythm. Normal S1 and S2 GI: Normal to inspection. Soft and nontender Skin: No rashes or lesions noted Neuro: Patient oriented x3 Extremities: Normal to inspection, +sensation with use of monofilament, feet are intact Results Labs: - Fasting Blood Sugar: 153 mg/dL - LDL Cholesterol: 148 mg/dL - Total Cholesterol: 206 mg/dL - Hemoglobin A1c: 6.7% Plan - Initiate statin therapy for management of Dyslipidemia/diabetes. - Start low-dose RIVAS inhibitor for diabe luc management and monitor for dizziness. - Begin Metformin once daily for blood s ugar control. - Schedule follow-up appointments to [facility] diabetes management. - Collaborate with nurse navigator for c omprehensive diabetes education. - Arrange for coverage of glucose meter and supplies through insurance if applicable. - Instruct patient to conduct twice-viviane y blood glucose testing with morning and random evening checks. -educated on importance of yearly eye ex ams -pt refused all vaccinations Patient was informed and verbally consented to the use of an ambient scribe for clinic note documentation during this visit. Discussion Notes I discussed with the patient the diagnosis of Type 2 Diabetes Mellitus and the implications of managing her condition, including the importance of regular eye exams and foot care. The patient was informed about the initiation of statin therapy to manage her Dyslipidemia, as well as the potential side effects of starting a low-dose RIVAS inhibitor, emphasizing precautions regarding dizziness. We covered the use of Metformin for managing blood glucose levels and its common side effects, including gastrointestinal upset. The importance of twice-daily blood glucose monitoring and recording was highlighted, with instructions to mix up testing times. I advised her to report any concerns via the patient portal, and we will follow up on the effectiveness of the management plans through ongoing consultations. Patient Instructions - Start taking prescribed statin at nigh t; monitor for any side effects. - Begin low-dose RIVAS inhibitor; stop if dizziness occurs and report. - Take Metformin once daily; notify if g astrointestinal upset occurs. - Conduct and record twice-daily blood g lucose testing. - Make lifestyle adjustments as guided b y nutritional specialist. - Follow up regularly for diabetes manag ement and education. [facility] Surgical History No pertinent past surgical history Social History Housing: House Patient Tobacco Use Status: Never used Tobacco e-Cigarette/Vaping Use: Never Used Second Hand Smoke Exposure: No service: No Current occupational status: employed Current occupation: [employer] Current occupational exposures/hazards: No Cognitive needs: No Hearing needs: No Vision needs: Yes Questionnaire PHQ-9 Over the last 2 weeks, how often have you been bothered by any of the following problems? 1. Little interest or pleasure in doing things: several days 2. Feeling down, depressed, or hopeless: several days 3. Trouble falling or staying asleep, or sleeping too much: more than half the days 4. Feeling tired or having little energy: more than half the days 5. Poor appetite or overeating: not at all 6. Feeling bad about yourself - or that you are a failure or have let yourself or your family down: several days 7. Trouble concentrating on things, such as reading the newspaper or watching television: several days 8. Moving or speaking so slowly that other people could have noticed. Or the opposite - being so fidgety or restless that you have been moving around a lot more than usual: several days 9. Thoughts that you would be better off or of hurting yourself in some way: not at all Total score: 9 Depression Screening Interpretation: Positive (will have BH reach out to pt, denies any si or hi) Depression Screening Follow-up: Existing condition Depression Screening Done: Yes 24652 - PHQ-9 Billing: Yes Source: Developed by Drs. Saroj Parmar, Cheri Grewal, Feng Harris and colleagues, with an educational brent from [employer]. Thrive Questionnaire Date Thrive assessed: 05/20/24 I am a: Patient What is your living situation today?: I have a steady place to live Within the past 12 months, did the food you bought not last and you didn't have the money to get more?: Sometimes True Within the past 12 months, did you worry whether your food would run out before you got money to buy more?: Sometimes True Do you have trouble paying for medicines?: No Do you have trouble getting transportation to medical appointments?: No Do you have trouble paying your heating and electricity bill?: No Do you have trouble taking care of your child, family member or friend?: No Do you have trouble with day-to-day activities such as bathing, preparing meals, shopping, managing finances, etc.?: No Are you currently unemployed and looking for a job?: No Are you interested in more education?: No Please select the resources that you would like help with: None Currently or been in a relationship where the following occur: No concerns reported THRIVE Score: 2 AUDIT C Alcohol Use Questionnaire (AUDIT-C) 1. How often do you have a drink containing alcohol?: 2-4 times a month 2. How many drinks containing alcohol do you have on a typical day when you are drinking?: 1 or 2 3. How often do you have six or more drinks on one occasion?: Less than monthly Total Score: 3 Score Reviewed/Action Taken: Yes EYAD-7 AMB Questionnaire EYAD-7 Date EYAD - 7 assessed: 05/20/24 Feeling nervous, anxious, or on edge: 1 = Several days Not being able to stop or control worryin = Several days Worrying too much about different things: 1 = Several days Trouble relaxin = Several days Being so restless that it is hard to sit still: 1 = Several days Becoming easily annoyed or irritable: 1 = Several days Feeling afraid as if something awful might happen: 1 = Several days Total EYAD-7 score (0-4 normal; 5-9 mild; 10-14 moderate; 15-21 severe): 7 Source: Developed by Drs. Saroj Parmar, Cheri Grewal, Feng Harris and colleagues, with an educational brent from [employer]. EYAD-7 Assessment Billing EYAD-7 Assessment Tool: EYAD-7 Assessment 43595 Physical exam (Primary Care) Vital Signs: Last Vital Signs Pulse 74 05/20/24 16:20 BP 118/72 05/20/24 16:20 Pulse Ox 98 05/20/24 16:20 BMI result Body Mass Index 40.9 Tobacco/Smoking Status: Tobacco use Status Tobacco use date assessed 05/20/24 05/20/24 16:24 Patient Tobacco Use Status Never used Tobacco 05/20/24 16:24 e-Cigarette/Vaping Use Never Used 05/20/24 16:24 PHQ-9: PHQ-9 Score PHQ-9: Total score 9 05/20/24 16:24 Depression Screening Interpretation: Positive (will have BH reach out to pt, denies any si or hi) Depression Screening Follow-up: Existing condition Thrive Assessment: Date of Thrive Assessment Date Thrive assessed 05/20/24 05/20/24 16:24 Currently or been in a relationship where the following occur: No concerns reported Results AMB Hemoglobin A1c AMB Hemoglobin A1c 6.7 % Last Edit by Andrea Obando CMA on 05/20/24 16: 59 Coding Level of Care Code Est Pt Prev Care 18-39y(06894) Diagnoses Newly diagnosed diabetes E11.9 Physical exam Z00.00 Additional Codes EYAD-7 Assessment Billing - EYAD-7 Assessment Tool: EYAD-7 Assessment 40949 ([id number]) PHQ-9 - 02476 - PHQ-9 Billing: Yes ([id number]) Assessment & Plan Assessment & Plan (1) Newly diagnosed diabetes: Code(s): E11.9 - Type 2 diabetes mellitus without complications Category: Medical (2) Physical exam: Code(s): Z00.00 - Encounter for general adult medical examination without abnormal findings Category: Medical Plan . Orders: Orders AMB Hemoglobin A1c Today Z13.9 - Encounter for screening, unspecified Referrals Nurse Navigator Referral E11.9 - Type 2 diabetes mellitus without complications Medications: New lisinopril 2.5 mg PO DAILY 30 days 30 tabs 3RF metformin ER 500 mg PO DAILY 30 tabs 3RF atorvastatin 10 mg PO BEDTIME 30 tabs 2RF
== END 2024-05-20 17:00 | disposition home or self-care (01) ==
PROVIDERS: PCP Nurse Practitioner Family; Visit Provider Nurse Practitioner Family
DX: E11.9 Type 2 diabetes mellitus without complications (principal); Z00.00 Encounter for general adult medical examination without abnormal findings; Z13.9 Encounter for screening, unspecified

== ENCOUNTER → 2024-05-20 16:20 | Outpatient (BNVA) | payer OTHER, SELFPAY | PROVIDERS: PCP Nurse Practitioner Family; Visit Provider Nurse Practitioner Family | DX: Z00.00 Encounter for general adult medical examination without abnormal findings (principal); E11.9 Type 2 diabetes mellitus without complications; E78.5 Hyperlipidemia, unspecified | CPT/HCPCS: 83036; 96127 ==

== ENCOUNTER → 2024-06-07 15:14 | Outpatient (BNVA) | payer OTHER, SELFPAY | PROVIDERS: PCP Nurse Practitioner Family ==

== ENCOUNTER → 2024-06-14 09:54 | Outpatient (BNVA) | payer OTHER, SELFPAY | PROVIDERS: PCP Nurse Practitioner Family ==

== ENCOUNTER 2024-07-30 14:31 | Outpatient (AMB) | payer OTHER, SELFPAY ==
[2024-07-30 14:44] VITALS: BMI 39.5
--- NOTE | 2024-07-30 14:44 | A.OFFVIS_ITS ---
VS Expanded 07/30/24 14:44 08/06/24 13:49 Height 5 ft 5 in 5 ft 5 in Weight 237 lb 10.533 oz 238 lb BMI 39.5 39.6 Intake Visit Reasons: Obesity Allergies No Known Allergies Allergy (Verified 05/20/24 16:21) Nutrition Presentation Details: Pt presents for MNT f/u for obesity and t2DM on metformin 500 mg /d Pt reports bg within 140s in the fasting state and 160s , 2 hours after a meal pt reports gradually continuing to work on reducing food portion sizes and enga ging in physical activity , walking daily 30-60 min fluid: 36-40 oz/d dairy: 2-3 /d fruits: 0-1/d veg 2x/wk BS Monitoring Most Recent Diabetes Results: Cholesterol 206 mg/dL (<200) H 05/16/24 HDL Cholesterol 37 mg/dL (>40) L 05/16/24 Triglycerides 108 mg/dL (<150) 05/16/24 Creatinine 0.67 mg/dL (0.5-1.4) 05/16/24 Blood Urea Nitrogen 14 mg/dL (9-16) 05/16/24 Sodium 139 mmol/L (135-145) 05/16/24 Potassium 4.2 mmol/L (3.3-5.1) 05/16/24 Chloride 108 mmol/L (96-108) 05/16/24 Carbon Dioxide 26 mmol/L (22-29) 05/16/24 Calcium 9.1 mg/dL (8.4-10.2) 05/16/24 AST 23 U/L (5-31) 05/16/24 ALT 28 U/L (0-31) 05/16/24 Total Protein 6.8 g/dL (6.5-8.0) 05/16/24 Albumin 4.0 g/dL (3.5-5.0) 05/16/24 OKG-Gxmskes-Xp.Jeor Equation Height: 5 ft 5 in Weight: 238 lb Resting Metabolic Rate: 1762.39 Calculated Activity Level: Sedentary Calories Needed to Maintain Weight: 2114.87 [facility] Surgical History No pertinent past surgical history Social History Housing: House Patient Tobacco Use Status: Never used Tobacco e-Cigarette/Vaping Use: Never Used Second Hand Smoke Exposure: No service: No Current occupational status: employed Current occupation: [employer] Current occupational exposures/hazards: No Cognitive needs: No Hearing needs: No Vision needs: Yes Assessment & Plan Assessment & Plan (1) Obesity: Code(s): E66.9 - Obesity, unspecified Category: Medical Plan: Wt: 120 Kg ( 09/2023 ), 118 kg(11/2023), 118 kg (01/2024), 114 kg (03/31), 111kg (06/01), 108 kg (07/30) Est kcal needs as per MSJ: 2100 (40% carb, 30% protein/fat) Est fluid needs as per 25-30 ml/d: 3200 Est prot per day as per 1 g/kg bw: 100 Recommend fiber intake : 8-10 g per day and gradually increase to 25-28 g per day for women and 35-38 g for men or as tolerated Recommend sodium intake per day : less than 2300 mg Educated patient on: ( R = reviewed V = verbalizes understanding N/R = needs review N/A = not applicable * Food sources of carbohydrate, adequate serving sizes and its role in various health conditions: R * Differences between complex carbohydrates a simple carbohydrates, role of fiber in diet: R * Lean protein sources of foods: R * Differences between types of fats and role in diet (mono on saturated fat fatty acids, saturated fatty acids, trans fats): R V * Food sources of sodium in salt and healthy modifications for heart health in kidney health: R * Vitamins and minerals: R (including iron rich foods and vitamin c rich foods,) * Healthy plate method concept: R * Physical activity: Benefits a precaution: R * hydration: R * iron rich foods Patient Instructions: Work on watching portion sizes of carbs sources of foods aim at less than 210 g per day , choosing higher fiber sources of foods keep hydrated by having 13 cup of fluids/day (choose water, milk/alternative, fruit/herb infused water, soups Coding Level of Care Code Nutr Indiv Subseq (91049) Diagnoses Obesity E66.9 Time Spent (min) 30
[2024-08-08 14:22] VITALS: BMI 39.6
== END 2024-07-30 15:17 | disposition home or self-care (01) ==
LOC: HO.ENCR 14:32
PROVIDERS: PCP Nurse Practitioner Family; Visit Provider Dietitian, Registered
DX: E66.9 Obesity, unspecified (principal)

== ENCOUNTER → 2024-07-30 14:31 | Outpatient (BNVA) | payer OTHER, SELFPAY | PROVIDERS: PCP Nurse Practitioner Family; Visit Provider Dietitian, Registered | DX: E66.9 Obesity, unspecified (principal); Z71.3 Dietary counseling and surveillance; Z68.39 Body mass index [BMI] 39.0-39.9, adult; Z79.84 Long term (current) use of oral hypoglycemic drugs | CPT/HCPCS: 97803 ==

== ENCOUNTER 2024-08-22 14:09 | Outpatient (AMB) | payer OTHER, SELFPAY ==
[2024-08-22 14:13] VITALS: BP 120/78; PULSE 66; O2SAT 96; BMI 40.0
--- NOTE | 2024-08-22 14:13 | MHC.PC.OV ---
Vital Signs 08/22/24 14:13 Height 5 ft 5 in Weight 240 lb 5 oz BMI 40.0 BP 120/78 Blood Pressure Location Rt brachial Position Sitting Pulse 66 Pulse Source Pulse Oximeter Pulse Oximetry (%) 96 Oxygen Delivery Method Room Air Intake Visit Reasons: 3 months f/up Allergies No Known Allergies Allergy (Verified 08/22/24 14:13) Medication List - Last Reconciled 08/22/24 by LISSETH Sandoval atorvastatin 10 mg PO BEDTIME cetirizine 10 mg PO DAILY PRN FreeStyle Lite Meter (blood-glucose meter) As directed NS FreeStyle Lite Strips (blood sugar diagnostic) Test blood sugar twice a day NS lancets (FreeStyle Lancets) Test blood sugar twice a day lisinopril 2.5 mg PO DAILY 30 days metformin ER 500 mg PO DAILY semaglutide (Ozempic) 0.25 mg (0.368 mL) subcut QWEEK Tobacco use date assessed: 08/22/24 Dental Screening Dental Screen Date: 08/22/24 Did you have a dental visit in the last 12 months?: Yes Did you have a dental problem in the last 6 months where you did not have access to dental care?: No Was dental information given to patient?: Patient has dentist HPI 3 months f/up HPI Details Chief Complaint The patient reports concerns about elevated blood sugar levels. History of Present Illness The patient is a 39-year-old female presenting with concerns of elevated blood sugar levels during her diabetes management follow-up. Recently diagnosed with type 2 diabetes mellitus three months prior, she is observing blood glucose readings above 200 mg/dL at night following full meals and occasional nocturnal snacking. While she is compliant with monitoring her glucose, her dietary habits have been discussed to mitigate nighttime hyperglycemia. The patient is using metformin and maintains a hemoglobin A1c level of 6.2%. She denies any symptoms related to neuropathy, chest discomfort, abdominal distress, or excessive thirst and urination. Her obesity is noted alongside her diabetes management. She currently wears an orthopedic boot on the right lower extremity. Social History - Reports occasional nighttime snacking. - Engaged in discussions about healthier dietary choices and managing obesity. - Currently using an orthopedic boot on the right lower extremity. Health Maintenance - Continued monitoring of blood glucose levels. - Emphasis on healthier eating habits for diabetes control and management of obesity. - Consideration of GLP-1 agonist as an addition to diabetes treatment regimen. - Current A1c measurement at 6.2%. Review of Systems - Metabolic: Reports elevated blood sugar levels at night. Denies polyuria, polydipsia. - Neurological: Denies neuropathy. - Respiratory: Denies shortness of breath. - Cardiovascular: Denies chest pain. - Gastrointestinal: Denies abdominal pain. Physical Exam General: Cooperative, healthy appearing, comfortable, no acute distress and well developed Orientation: Patient oriented x3 Limitations: No limitations Head: Normal to inspection Ears: Hearing grossly normal bilaterally Nose: Normal external nose present Face and sinus: Normal facial exam Eyes: Appearance normal, both eyes and all related structures Neck: Normal visual inspection and Yes full ROM Respiratory: Normal respiratory effort and able to speak in complete sentences. Clear to auscultation bilaterally Cardiovascular: Regular rate and rhythm. Normal S1 and S2 GI: Normal to inspection. Soft to palpation and nontender Skin: No rashes or lesions noted Neuro: Patient oriented x3 Extremities: Right lower extremity with orthopedic boot, left foot intact with + sensation with use of monofilament. Results - Labs: Hemoglobin A1c is 6.2%. Plan We will adjust the patient?s treatment regimen for diabetes by taking metformin at bedtime with food and adding a GLP-1 agonist to enhance glycemic control and address obesity. Metformin dosing with evening meals may help in mitigating elevated nighttime readings, while GLP-1 agonists are expected to aid weight management and improve overall glucose levels. The potential side effects were discussed, and the patient expressed understanding and agreement. Continued glucose monitoring and follow-up visits are essential for evaluating treatment efficacy. Discussion Notes During the visit, I reviewed with the patient the management strategy for her type 2 diabetes mellitus, particularly focusing on addressing her elevated nighttime blood glucose levels. We discussed the introduction of a GLP-1 agonist to her treatment plan to both manage her diabetes more effectively and assist with weight concerns. I explained the efficacy and side effect profile of GLP-1 agonists, highlighting their role in achieving better glycemic control and weight management. We agreed on modifications to her metformin regimen, adopting a nighttime dose with meals to possibly reduce nocturnal hyperglycemia. Follow-up was emphasized for monitoring purposes, and the patient willingly agreed to the proposed plan, expressing understanding of the management approach. Patient Instructions - Monitor blood sugar levels regularly, particularly in the evenings. - Take metformin with dinner each day. - Choose healthier snacks to help manage blood sugar levels. - Begin using the new medication as directed. - Contact the office if you experience any new or concerning symptoms. - Continue wearing the orthopedic boot as directed by your credit card specialist. [facility] Surgical History No pertinent past surgical history Social History Housing: House Patient Tobacco Use Status: Never used Tobacco e-Cigarette/Vaping Use: Never Used Second Hand Smoke Exposure: No service: No Current occupational status: employed Current occupation: [employer] Current occupational exposures/hazards: No Cognitive needs: No Hearing needs: No Vision needs: Yes Questionnaire Thrive Questionnaire Date Thrive assessed: 08/22/24 I am a: Patient What is your living situation today?: I have a steady place to live Within the past 12 months, did the food you bought not last and you didn't have the money to get more?: Sometimes True Within the past 12 months, did you worry whether your food would run out before you got money to buy more?: Sometimes True Do you have trouble paying for medicines?: No Do you have trouble getting transportation to medical appointments?: No Do you have trouble paying your heating and electricity bill?: No Do you have trouble taking care of your child, family member or friend?: No Do you have trouble with day-to-day activities such as bathing, preparing meals, shopping, managing finances, etc.?: No Are you currently unemployed and looking for a job?: No Are you interested in more education?: No Please select the resources that you would like help with: None Currently or been in a relationship where the following occur: No concerns reported THRIVE Score: 2 AUDIT C Alcohol Use Questionnaire (AUDIT-C) 1. How often do you have a drink containing alcohol?: 2-4 times a month 2. How many drinks containing alcohol do you have on a typical day when you are drinking?: 1 or 2 3. How often do you have six or more drinks on one occasion?: Less than monthly Total Score: 3 Score Reviewed/Action Taken: Yes EYAD-7 AMB Questionnaire EYAD-7 Date EYAD - 7 assessed: 05/20/24 Source: Developed by Cheri Mendiola B.W. Uri, Feng Harris and colleagues, with an educational brent from [employer]. Physical exam (Primary Care) Vital Signs: Last Vital Signs Pulse 66 08/22/24 14:13 BP 120/78 08/22/24 14:13 Pulse Ox 96 08/22/24 14:13 Oxygen Delivery Method Room Air 08/22/24 14:13 BMI result Body Mass Index 40.0 Tobacco/Smoking Status: Tobacco use Status Tobacco use date assessed 08/22/24 08/22/24 14:15 Patient Tobacco Use Status Never used Tobacco 08/22/24 14:15 e-Cigarette/Vaping Use Never Used 08/22/24 14:15 Thrive Assessment: Date of Thrive Assessment Date Thrive assessed 08/22/24 08/22/24 14:19 Currently or been in a relationship where the following occur: No concerns reported Results AMB Hemoglobin A1c AMB Hemoglobin A1c 6.2 % Last Edit by Darius Pabon CMA on 08/22/24 14:46 Results Reviewed Results Reviewed: Laboratory Last Values Hgb A1c (Clinic) 6.2 % (4.0-6.0) H 08/22/24 14:45 Coding Level of Care Code Est Pt Level 3 (36015) Diagnoses Newly diagnosed diabetes E11.9 Morbid obesity E66.01 Assessment & Plan Assessment & Plan (1) Newly diagnosed diabetes: Code(s): E11.9 - Type 2 diabetes mellitus without complications Category: Medical (2) Morbid obesity: Code(s): E66.01 - Morbid (severe) obesity due to excess calories Category: Medical Plan . Orders: Orders Comprehensive [place]. Panel Fast Today E11.9 - Type 2 diabetes mellitus without complications, E66.9 - Obesity, unspecified TSH reflex Free T4 Today E11.9 - Type 2 diabetes mellitus without complications, E66.9 - Obesity, unspecified UA CC w/rflx Micro + Cult Today E11.9 - Type 2 diabetes mellitus without complications, E66.9 - Obesity, unspecified AMB Hemoglobin A1c Today E11.9 - Type 2 diabetes mellitus without complications Microalbumin, Random (w Creat) Today E11.9 - Type 2 diabetes mellitus without complications Complete Blood Count Auto Diff Today E11.9 - Type 2 diabetes mellitus without complications, E66.9 - Obesity, unspecified Medications: New semaglutide (Ozempic) for 4 weeks 0.25 mg (0.368 mL) subcut QWEEK 3 mL 0RF
== END 2024-08-22 14:59 | disposition home or self-care (01) ==
LOC: HO.HMCC 14:10
PROVIDERS: PCP Nurse Practitioner Family; Visit Provider Nurse Practitioner Family
DX: E11.9 Type 2 diabetes mellitus without complications (principal); E66.01 Morbid (severe) obesity due to excess calories; Z68.41 Body mass index [BMI] 40.0-44.9, adult

== ENCOUNTER → 2024-08-22 14:09 | Outpatient (BNVA) | payer OTHER, SELFPAY | PROVIDERS: PCP Nurse Practitioner Family; Visit Provider Nurse Practitioner Family | DX: E11.9 Type 2 diabetes mellitus without complications (principal); E66.01 Morbid (severe) obesity due to excess calories; Z68.41 Body mass index [BMI] 40.0-44.9, adult; Z79.84 Long term (current) use of oral hypoglycemic drugs | CPT/HCPCS: 83036 ==

== ENCOUNTER 2024-11-05 14:35 | Outpatient (AMB) | payer OTHER, SELFPAY ==
[2024-11-05 14:41] VITALS: BMI 38.3
--- NOTE | 2024-11-05 14:41 | A.OFFVIS_ITS ---
VS Expanded 11/05/24 14:41 11/05/24 20:30 Height 5 ft 5 in 5 ft 5 in Weight 230 lb 2.601 oz 230 lb BMI 38.3 38.3 Intake Visit Reasons: t2dm, obesity Allergies No Known Allergies Allergy (Verified 08/22/24 14:13) Nutrition Presentation Details: Pt presents for MNT f/u for obesity with T2DM Pt reports doing well, continuing to work on diet modifications and working on modifying night snacks and choosing nutrient dense snacks. Physical activity has lessened d/t foot/ankle injury, currently participating in PT Typical meal intake B: adding fernando seeds to protein shake (21-30 g protein/ 4-15 g carb, 3-6 g fiber) L: salad with chicken or tuna , vinaigrette D: low carb mission tortilla fajita ,salsa snack: crackers/yogurts fluids: water, tea , low sugar /fruit flavor , 32 oz /day fruits: 1-2/d dairy: 2/d fish : 1-2/wk veg:>3 daily starches:choosing variety and choosing those with fiber WDU-Ugntbgb-Nb.Jeor Equation Height: 5 ft 5 in Weight: 230 lb Resting Metabolic Rate: 1726.13 Calculated Activity Level: Sedentary Calories Needed to Maintain Weight: 2071.36 [facility] Surgical History No pertinent past surgical history Social History Housing: House Patient Tobacco Use Status: Never used Tobacco e-Cigarette/Vaping Use: Never Used Second Hand Smoke Exposure: No service: No Current occupational status: employed Current occupation: [employer] Current occupational exposures/hazards: No Cognitive needs: No Hearing needs: No Vision needs: Yes Assessment & Plan Assessment & Plan (1) Obesity: Code(s): E66.9 - Obesity, unspecified Category: Medical Plan: Wt: 120 Kg ( 09/2023 ), 118 kg(11/2023), 104 kg (11/29) Est kcal needs as per MSJ: 2100 - 500 = 1600 (40% carb, 30% protein/fat) Est fluid needs as per 25-30 ml/d: 3100 Est prot per day as per 1 g/kg bw: 100 Recommend fiber intake : 8-10 g per day and gradually increase to 25-28 g per day for women and 35-38 g for men or as tolerated Recommend sodium intake per day : less than 2300 mg Educated patient on: ( R = reviewed V = verbalizes understanding N/R = needs review N/A = not applicable * Food sources of carbohydrate, adequate serving sizes and its role in various health conditions: R * Differences between complex carbohydrates a simple carbohydrates, role of fiber in diet: R * Lean protein sources of foods: R * Differences between types of fats and role in diet (mono on saturated fat fatty acids, saturated fatty acids, trans fats): R V * Food sources of sodium in salt and healthy modifications for heart health in kidney health: R * Vitamins and minerals: R (including iron rich foods and vitamin c rich foods,) * Healthy plate method concept: R * Physical activity: Benefits a precaution: R * hydration: R * iron rich foods Patient Instructions: Aim at having -8 oz of fluids before and after meals (water, fruit/herb infused flavored water, decaf tea, milk choose yogurt as bedtime snack or fruit and nuts or snack on cucumbers- choosing foods high in water (peppers, oranges as examples) try vegetables shakes Coding Level of Care Code Nutr Indiv Subseq (81252) Diagnoses Obesity E66.9 Time Spent (min) 30
[2024-11-05 20:30] VITALS: BMI 38.3
== END 2024-11-05 15:06 | disposition home or self-care (01) ==
LOC: HO.ENCR 14:37
PROVIDERS: PCP Nurse Practitioner Family; Visit Provider Dietitian, Registered
DX: E66.9 Obesity, unspecified (principal)

== ENCOUNTER → 2024-11-05 14:35 | Outpatient (BNVA) | payer OTHER, SELFPAY | PROVIDERS: PCP Nurse Practitioner Family; Visit Provider Dietitian, Registered | DX: E11.9 Type 2 diabetes mellitus without complications (principal); E66.9 Obesity, unspecified | CPT/HCPCS: 97803 ==

== ENCOUNTER 2024-12-16 06:38 | Outpatient (AMB) | payer OTHER, SELFPAY ==
--- NOTE | 2024-12-16 07:27 | A.OFFPC_ITS ---
Intake Visit Reasons: Discuss medications and iPhone Allergies No Known Allergies Allergy (Verified 12/16/24 07:27) Medication List - Last Reconciled 12/16/24 by LISSETH Sandoval cetirizine 10 mg PO DAILY PRN FreeStyle Lite Meter (blood-glucose meter) As directed NS FreeStyle Lite Strips (blood sugar diagnostic) Test blood sugar twice a day NS lancets (FreeStyle Lancets) Test blood sugar twice a day Tobacco use date assessed: 08/22/24 Dental Screening Dental Screen Date: 08/22/24 HPI Discuss medications and iPhone HPI Details History of Present Illness The patient is a 39-year-old female presenting for preconception counseling and medication management related to her plans. She has been advised to discontinue several medications, including metformin, lisinopril, and her statin, due to her plans to conceive. She will continue taking cetirizine for her severe allergies, which she reports as beneficial. The patient reports experiencing numbness and neuropathic symptoms in her bilateral extremities, which began after using a magnesium spray on her feet. Despite the onset of symptoms following the use of the spray, systemic absorption is considered unlikely, but laboratory tests, including magnesium levels, will be conducted to investigate further. She denies any chest pain, sob, fevers, chills, weakness, fatigue, blurred vision, NICHOLS. A follow-up is scheduled for February to assess her diabetes management while off her medications. Review of Systems - Neurological: Reports numbness and charles ropathic symptoms in bilateral extremities. Denies headaches or dizziness. - Cardiovascular: Denies chest pain or d yspnea. Plan The patient will discontinue metformin, lisinopril, and her statin as part of her preconception plan, continuing only cetirizine for allergy management. Laboratory tests, including magnesium levels, will be conducted to investigate the cause of her neuropathic symptoms. ER with any worsening symptoms A follow-up appointment is scheduled for February to evaluate her diabetes management without medication. [facility] Surgical History No pertinent past surgical history Social History Housing: House Patient Tobacco Use Status: Never used Tobacco e-Cigarette/Vaping Use: Never Used Second Hand Smoke Exposure: No service: No Current occupational status: employed Current occupation: [employer] Current occupational exposures/hazards: No Cognitive needs: No Hearing needs: No Vision needs: Yes Questionnaire Thrive Questionnaire Date Thrive assessed: 05/14/24 I am a: Patient What is your living situation today?: I have a steady place to live Within the past 12 months, did the food you bought not last and you didn't have the money to get more?: Sometimes True Within the past 12 months, did you worry whether your food would run out before you got money to buy more?: Sometimes True Do you have trouble paying for medicines?: No Do you have trouble getting transportation to medical appointments?: No Do you have trouble paying your heating and electricity bill?: No Do you have trouble taking care of your child, family member or friend?: No Do you have trouble with day-to-day activities such as bathing, preparing meals, shopping, managing finances, etc.?: No Are you currently unemployed and looking for a job?: No Are you interested in more education?: No Please select the resources that you would like help with: None Currently or been in a relationship where the following occur: No concerns reported THRIVE Score: 2 EYAD-7 AMB Questionnaire EYAD-7 Date EYAD - 7 assessed: 05/20/24 Source: Developed by Drs. Saroj Parmar, Cheri Grewal, Feng Harris and colleagues, with an educational brent from [employer]. Physical exam (Primary Care) Tobacco/Smoking Status: Tobacco use Status Tobacco use date assessed 08/22/24 08/22/24 14:15 Patient Tobacco Use Status Never used Tobacco 08/22/24 14:15 e-Cigarette/Vaping Use Never Used 08/22/24 14:15 Thrive Assessment: Date of Thrive Assessment Date Thrive assessed 05/14/24 09/16/24 13:18 Currently or been in a relationship where the following occur: No concerns reported Telehealth Telehealth Telehealth [facility] Location of provider rendering services: practice address Location of patient: address on file Patient Identification confirmed using: Name, : Yes Telehealth method: video Patient verbally consented to treatment: Yes Patient verbally consented to billing insurance company: Yes Patient informed of any privacy concerns related to visit: Yes Minutes spent on Phone/Video with Pt.: 15 Coding Level of Care Code Tele Est Pt Level 3 (12430) Diagnoses Newly diagnosed diabetes E11.9 Neuropathy G62.9 Attempting to conceive Z78.9 Assessment & Plan Assessment & Plan (1) Newly diagnosed diabetes: Code(s): E11.9 - Type 2 diabetes mellitus without complications Category: Medical (2) Neuropathy: Code(s): G62.9 - Polyneuropathy, unspecified Category: Medical (3) Attempting to conceive: Code(s): Z78.9 - Other specified health status Category: Social Hx Plan . Orders: Orders Lyme IgG/IgM w/reflex to WB Today G62.9 - Polyneuropathy, unspecified Magnesium Today G62.9 - Polyneuropathy, unspecified Vitamin B6 Today G62.9 - Polyneuropathy, unspecified Vitamin B12 Today G62.9 - Polyneuropathy, unspecified Syphilis Screen Today G62.9 - Polyneuropathy, unspecified Complete Blood Count Auto Diff Today G62.9 - Polyneuropathy, unspecified HIV Ab/Ag Today G62.9 - Polyneuropathy, unspecified Hemoglobin A1c Today E11.9 - Type 2 diabetes mellitus without complications
== END 2024-12-16 07:44 | disposition home or self-care (01) ==
LOC: HO.HMCC 06:39
PROVIDERS: PCP Nurse Practitioner Family; Visit Provider Nurse Practitioner Family
DX: E11.42 Type 2 diabetes mellitus with diabetic polyneuropathy (principal); G62.9 Polyneuropathy, unspecified; Z78.9 Other specified health status

== ENCOUNTER 2024-12-27 16:18 | Outpatient (REF) | payer OTHER, SELFPAY ==
[2024-12-27 16:45] LABS: MANUAL DIFF FLAG NO
[2024-12-27 17:33] LABS: Hematocrit 36.1 % (37.0-47.0); Hemoglobin 11.9 g/dl (12.0-16.0); Imm Gran Abs Auto 0.05 X10*3/uL (0.00-0.03); Imm Gran Pct Auto 0.8 % (0.0-0.4); Lymphocytes Absolute Auto 2.1 X10*3/uL (1.2-4.9); Mean Corpuscular HGB Conc 33.0 g/dl (31.0-35.0); Mean Corpuscular Hemoglobin 29.6 pg (27.0-33.0); Mean Corpuscular Volume 89.8 fL (80.0-98.0); NRBC Abs Auto 0.000 X10*3/uL (0.0-0.012); NRBC Pct Auto 0.0 /100WBC (0.0-0.2); Platelet Count 230 X10*3/uL (160-400); Red Blood Count 4.02 X10*6/uL (4.20-5.50); White Blood Count 6.0 X10*3/uL (4.8-10.8)
[2024-12-27 17:37] LABS: Hemoglobin A1C 141.2745 umol/L; Total Hemoglobin (HGBA1C) 3223.9678 umol/L
[2024-12-27 18:16] LABS: Alanine Aminotransferase 39 U/L (0-31); Albumin Level 4.2 g/dL (3.5-5.0); Alkaline Phosphatase 62 U/L (39-117); Anion Gap 15 (12-20); Aspartate Amino Transferase 31 U/L (5-31); Blood Urea Nitrogen 13 mg/dL (9-16); Calcium 9.1 mg/dL (8.4-10.2); Carbon Dioxide 24 mmol/L (22-29); Chloride 106 mmol/L (96-108); Estimated Glomerular Filt Rate > 60; Magnesium 2.1 mg/dL (1.6-2.6); Potassium 3.9 mmol/L (3.3-5.1); Sodium 141 mmol/L (135-145); Total Protein 6.8 g/dL (6.5-8.0)
[2024-12-27 18:28] LABS: Appearance Urine Clear; Glucose Urine UA Negative (Negative); PH 5.5 (5.0-9.0); Specific Gravity - Urine 1.020 (1.005-1.025)
[2024-12-27 18:39] LABS: Vitamin B12 509 pg/mL (200-900)
[2024-12-27 19:37] LABS: Microalbum/Creatinine Ratio Ur 4.1 ug/mg cr (<30)
[2024-12-28 08:22] LABS: Syphilis Screen Nonreactive (Nonreactive)
[2024-12-28 08:41] LABS: HIV Num 1 0.06 S/CO (0.00-0.99)
[2024-12-30 19:43] LABS: Lyme Abs Screen <0.90 index
== END 2024-12-27 16:19 | disposition home or self-care (01) ==
LOC: HO.LAB 16:18
PROVIDERS: PCP Nurse Practitioner Family; Visit Provider Nurse Practitioner Family
DX: Z01.84 Encounter for antibody response examination (principal); Z11.4 Encounter for screening for human immunodeficiency virus [HIV]; E11.9 Type 2 diabetes mellitus without complications; E66.9 Obesity, unspecified; G62.9 Polyneuropathy, unspecified
CPT/HCPCS: 36415; 80053; 81003; 82043; 82570; 82607; 83036; 83735; 84207; 84443; 85025; 86617; 86618; 86780; 87389

== ENCOUNTER 2024-12-30 08:53 | Outpatient (REF) | payer OTHER, SELFPAY ==
[2024-12-30 11:24] LABS: Resp Syncy Virus RNA Qual PCR NEGATIVE (Negative); SARS COV2 PCR INHOUSE NEGATIVE (Negative)
== END 2024-12-30 08:54 | disposition home or self-care (01) ==
LOC: HO.LNP 08:53
PROVIDERS: PCP Nurse Practitioner Family; Visit Provider Physician Assistant Medical
DX: R09.89 Other specified symptoms and signs involving the circulatory and respiratory systems (principal); J06.9 Acute upper respiratory infection, unspecified; R05.9 Cough, unspecified; J02.9 Acute pharyngitis, unspecified
CPT/HCPCS: 87637; 87880

== ENCOUNTER 2024-12-30 08:53 | Outpatient (AMB) | payer OTHER, SELFPAY ==
[2024-12-30 08:57] VITALS: BP 106/74; PULSE 79; TEMP 36.7; O2SAT 97; BMI 38.3
--- NOTE | 2024-12-30 08:57 | AM.OFFWIN_ITS ---
Intake Vital Signs 12/30/24 08:57 Height 5 ft 5 in Weight 230 lb BMI 38.3 BP 106/74 Blood Pressure Location Lt brachial Position Sitting Pulse 79 Pulse Source Pulse Oximeter Temp 98.1 F Temp Source Oral Pulse Oximetry (%) 97 Oxygen Delivery Method Room Air Intake Visit Reasons: EP-sore throat, running nose,cough Intake Note: pt presents with sore throat with pain swallowing beverages, sinus congestion and chest congestions with a mild non productive cough x1 day Patient Tobacco Use Status: Never used Tobacco Allergies No Known Allergies Allergy (Verified 12/30/24 08:58) Do you need a note to return to daycare/school/sports/work: No HPI HPI Comments History of Present Illness Details History - The patient is a 39-year-old female pr esenting with a scratchy throat and postnasal congestion. - The scratchy throat began this morning , described as feeling like sawdust. - The patient reports her boyfriend, who lives with her, has had similar symptoms for four days, including postnasal congestion and sore throat. - The patient has not experienced any he adache or fever. - She states that her boyfriend has test ed negative for COVID-19 at home, although she has not personally taken the test yet. - The patient is taking cetirizine for h mike, which she inquired about continuing with her current symptoms. - She reports a slight cough but no ear pain. - She denies chills, abd pain, n/v/d, or travel. Physical Exam General: Cooperative, healthy appearing, comfortable and no acute distress Orientation/consciousness: Patient oriented x3 Limitations: No limitations Head: Normal to inspection Ears: Hearing grossly normal bilaterally, external ears normal and TM's normal bilaterally Nose: Normal external nose present, normal nares present, and no nasal discharge present. Face and sinus: Sinuses nontender to palpation. Mouth: Normal oral and palatal mucosa present and moist mucous membranes noted. Throat: Tonsils normal. Uvula is midline. Posterior oropharynx with erythema and no exudates. Eyes: Appearance normal, both eyes and all related structures Neck: Normal visual inspection, full ROM. No lymphadenopathy noted. Respiratory: Clear to auscultation bilaterally. Normal respiratory effort, able to speak in complete sentences. No respiratory distress, not tachypneic, no tripod positioning and no use of accessory muscles. Cardiovascular: Regular rate and rhythm. Normal S1 and S2 Skin: No rashes or lesions noted Patient was informed and verbally consented to the use of an ambient scribe for clinic note documentation during this visit [facility] Surgical History No pertinent past surgical history Social History Housing: House Patient Tobacco Use Status: Never used Tobacco e-Cigarette/Vaping Use: Never Used Second Hand Smoke Exposure: No service: No Current occupational status: employed Current occupation: [employer] Current occupational exposures/hazards: No Cognitive needs: No Hearing needs: No Vision needs: Yes Review of Systems Const All systems reviewed & are unremarkable except as noted in HPI and below Physical Exam Vital Signs: Last Vital Signs Temp 98.1 F 12/30/24 08:57 Pulse 79 12/30/24 08:57 BP 106/74 12/30/24 08:57 Pulse Ox 97 12/30/24 08:57 Oxygen Delivery Method Room Air 12/30/24 08:57 BMI result Body Mass Index 38.3 Assessment & Plan Assessment & Plan (1) URI (upper respiratory infection): Code(s): J06.9 - Acute upper respiratory infection, unspecified Qualifiers: URI type: unspecified URI Qualified Code(s): J06.9 - Acute upper respiratory infection, unspecified Plan Most likely URI vs covid vs flu vs allergic rhintis vs viral illness Rapid strep was negative Plan - A throat culture was performed to rule out streptococcal infection. - A combined test for COVID-19, influenza, and RSV was conducted, with results pending. - Tylenol or motrin as needed - diet as tolerated - The patient was advised to continue taking cetirizine and consider adding a nasal spray and guaifenesin for symptom relief. Orders: Orders AMB Rapid Strep Screen Today Z13.9 - Encounter for screening, unspecified SARS-CoV2/FLU/RSV Today R09.89 - Other specified symptoms and signs involving the circulatory and respiratory systems Medications: New fluticasone propionate 50 mcg/actuation administer into each nostril 1 spray intranasal Q12H 16 grams 0RF benzonatate 100 mg PO bid-tid PRN 21 caps 0RF Cough 7 days Coding Level of Care Code Est Pt Level 3 (19074) Diagnoses Upper respiratory tract infection, unspecified type J06.9 URI type: unspecified URI
== END 2024-12-30 09:29 | disposition home or self-care (01) ==
PROVIDERS: PCP Nurse Practitioner Family; Visit Provider Physician Assistant Medical
DX: Z13.9 Encounter for screening, unspecified (principal); J06.9 Acute upper respiratory infection, unspecified

== ENCOUNTER 2025-02-11 14:38 | Outpatient (AMB) | payer OTHER, SELFPAY ==
[2025-02-11 14:47] VITALS: BMI 38.9
--- NOTE | 2025-02-11 14:47 | A.OFFVIS_ITS ---
VS Expanded 02/11/25 14:47 Height 5 ft 5 in Weight 233 lb 14.567 oz BMI 38.9 Intake Visit Reasons: T2DM, obesity Allergies No Known Allergies Allergy (Verified 12/30/24 08:58) Nutrition Presentation Details: Pt presents for MNT for obesity with T2DM Pt reports dietary indiscretion, looking forward to resuming meal planning DM meds and others have stopped related to preconception BS Monitoring Most Recent Diabetes Results: Microalb/Creat Ratio, (<30) 4.1 ug/mg cr 12/27/24 Creatinine, (0.5-1.4) 0.65 mg/dL 12/27/24 BUN, (9-16) 13 mg/dL 12/27/24 Sodium, (135-145) 141 mmol/L 12/27/24 Potassium, (3.3-5.1) 3.9 mmol/L 12/27/24 Chloride, (96-108) 106 mmol/L 12/27/24 Carbon Dioxide, (22-29) 24 mmol/L 12/27/24 Calcium, (8.4-10.2) 9.1 mg/dL 12/27/24 AST, (5-31) 31 U/L 12/27/24 ALT, (0-31) 39 U/L H 12/27/24 Total Protein, (6.5-8.0) 6.8 g/dL 12/27/24 Albumin, (3.5-5.0) 4.2 g/dL 12/27/24 KCO-Keoejgs-Di.Jeor Equation Height: 5 ft 5 in Weight: 234 lb Resting Metabolic Rate: 1744.26 Calculated Activity Level: Sedentary Calories Needed to Maintain Weight: 2093.11 [facility] Surgical History No pertinent past surgical history Social History Housing: House Patient Tobacco Use Status: Never used Tobacco e-Cigarette/Vaping Use: Never Used Second Hand Smoke Exposure: No service: No Current occupational status: employed Current occupation: [employer] Current occupational exposures/hazards: No Cognitive needs: No Hearing needs: No Vision needs: Yes Assessment & Plan Assessment & Plan (1) Obesity: Code(s): E66.9 - Obesity, unspecified Category: Medical Plan: Wt: 120 Kg ( 09/2023 ), 118 kg(11/2023), 104 kg (11/29), 106 kg (03/01) Est kcal needs as per MSJ: 2100 - 500 = 1600 (40% carb, 30% protein/fat) Est fluid needs as per 25-30 ml/d: 3100 Est prot per day as per 1 g/kg bw: 100 Recommend fiber intake : 8-10 g per day and gradually increase to 25-28 g per day for women and 35-38 g for men or as tolerated Recommend sodium intake per day : less than 2300 mg Educated patient on: ( R = reviewed V = verbalizes understanding N/R = needs review N/A = not applicable * Food sources of carbohydrate, adequate serving sizes and its role in various health conditions: R * Differences between complex carbohydrates a simple carbohydrates, role of fiber in diet: R * Lean protein sources of foods: R * Differences between types of fats and role in diet (mono on saturated fat fatty acids, saturated fatty acids, trans fats): R V * Food sources of sodium in salt and healthy modifications for heart health in kidney health: R * Vitamins and minerals: R (including iron rich foods and vitamin c rich foods,) * Healthy plate method concept: R * Physical activity: Benefits a precaution: R * hydration: R * iron rich foods Patient Instructions: Continue working on choosing whole grain foods , fiber rich foods , reducing total carb to 45 g or less per meal work on reducing amount of fats added to the foods (amount of butter, oils, sauces, creams, visible fats) engage in physical activity goal 150 min/week, keep hydrated by having water with meals/snacks Coding Level of Care Code Nutr Indiv Subseq (06760) Diagnoses Obesity E66.9 Time Spent (min) 30
[2025-02-24 09:20] VITALS: BMI 38.9
== END 2025-02-11 15:08 | disposition home or self-care (01) ==
LOC: HO.ENCR 14:39
PROVIDERS: PCP Nurse Practitioner Family; Visit Provider Dietitian, Registered
DX: E66.9 Obesity, unspecified (principal)

== ENCOUNTER → 2025-02-11 14:38 | Outpatient (BNVA) | payer OTHER, SELFPAY | PROVIDERS: PCP Nurse Practitioner Family; Visit Provider Dietitian, Registered | DX: E66.9 Obesity, unspecified (principal); E11.9 Type 2 diabetes mellitus without complications; Z68.38 Body mass index [BMI] 38.0-38.9, adult; Z71.3 Dietary counseling and surveillance | CPT/HCPCS: 97803 ==

== ENCOUNTER 2025-02-25 16:04 | Outpatient (AMB) | payer OTHER, SELFPAY ==
[2025-02-25 16:11] VITALS: BP 148/100; PULSE 64; RESP 16; O2SAT 100; BMI 40.1
--- NOTE | 2025-02-25 16:11 | A.OFFPC_ITS ---
Vital Signs 02/25/25 16:11 02/25/25 16:46 Height 5 ft 5 in Weight 241 lb BMI 40.1 BP 148/100 H 124/72 Blood Pressure Location Lt brachial Lt brachial Position Sitting Sitting Respiration 16 Pulse 64 Pulse Oximetry (%) 100 Oxygen Delivery Method Room Air Intake Visit Reasons: 6m follow up Food Photographer Required: No Accompanied by: Self / Same As Patient Allergies No Known Allergies Allergy (Verified 02/25/25 17:24) Medication List - Last Reconciled 02/25/25 by SHASTA Sandoval- cetirizine 10 mg PO DAILY PRN fluticasone propionate 50 mcg/actuation 1 spray intranasal Q12H FreeStyle Lite Meter (blood-glucose meter) As directed NS FreeStyle Lite Strips (blood sugar diagnostic) Test blood sugar twice a day NS lancets (FreeStyle Lancets) Test blood sugar twice a day Tobacco use date assessed: 08/22/24 Dental Screening Dental Screen Date: 08/22/24 HPI 6m follow up HPI Details Chief Complaint The patient presents for a follow-up regarding diabetes management. History of Present Illness The patient is a 39-year-old female presenting with a follow-up for diabetes management. She has been monitoring her blood glucose levels at home, which have remained fairly stable, although occasional elevations into the upper 100s to low 200s occur, typically after consuming snacks such as ice cream. Her last recorded HbA1c was 6.2%. The patient is currently attempting to conceive and has discontinued all medications. She reports no neuropathy and regularly attends eye examinations. Liver enzymes were noted to be slightly elevated in previous laboratory tests, suspected to be due to fatty liver. The patient is experiencing significant stress, and efforts are being made to encourage stress reduction through meditation or daily periods of silence. Social History - Family Planning: Currently trying to c onceive - Stress Management: Encouraged to pract ice meditation or daily silence to reduce stress Health Maintenance - Regular eye examinations for diabetes management Review of Systems - Neurological: Denies neuropathy - Psychological: Denies suicidal ideatio n or homicidal ideation -denies any sob or cp Physical Exam General: Cooperative, healthy appearing, comfortable, no acute distress and well developed, morbidly obese Orientation: Patient oriented x3 Limitations: No limitations Head: Normal to inspection Ears: Hearing grossly normal bilaterally Nose: Normal external nose present Face and sinus: Normal facial exam Eyes: Appearance normal, both eyes and all related structures Neck: Normal visual inspection and Yes full ROM Respiratory: Normal respiratory effort and able to speak in complete sentences. Clear to auscultation bilaterally Cardiovascular: Regular rate and rhythm. Normal S1 and S2. Faint systolic murmur GI: Normal to inspection. Soft to palpation and nontender Skin: No rashes or lesions noted Neuro: Patient oriented x3. Posterol sensation with use of monofilament of feet. Feet were intact by S1-S2 Extremities: Normal to inspection Results - Labs: Last HbA1c was 6.2% - Labs: Slightly elevated liver enzymes, suspected due to fatty liver Plan 1. Diabetes Mellitus The patient is managing her diabetes by monitoring blood glucose levels at home, which remain fairly stable with occasional elevations due to dietary indiscretions. She is currently off medications due to her efforts to conceive, and her last HbA1c was 6.2%. Regular eye examinations are maintained, and no neuropathy is reported. 2. Elevated Liver Enzymes The patient has slightly elevated liver enzymes, likely due to fatty liver, and monitoring will continue. An ultrasound was not performed due to her current attempts to become . 3. Stress Management The patient is experiencing significant stress, and interventions such as meditation or daily periods of silence are recommended to help manage stress levels. Discussion Notes During the visit, we discussed the management of diabetes, emphasizing the importance of maintaining stable blood glucose levels and regular eye examinations. We also addressed the slightly elevated liver enzymes, likely due to fatty liver, and decided to continue monitoring without an ultrasound due to her plans. Stress management strategies, including meditation and daily silence, were recommended to help reduce stress levels. Follow-up is scheduled for six months. Patient Instructions - Continue monitoring blood glucose charles pineda at home. - Maintain regular eye examinations. - Practice stress reduction techniques s uch as meditation or daily silence. - Follow up in six months or sooner if n eeded. [facility] Surgical History No pertinent past surgical history Social History Housing: House Patient Tobacco Use Status: Never used Tobacco e-Cigarette/Vaping Use: Never Used Second Hand Smoke Exposure: No service: No Current occupational status: employed Current occupation: [employer] Current occupational exposures/hazards: No Cognitive needs: No Hearing needs: No Vision needs: Yes Questionnaire Thrive Questionnaire Date Thrive assessed: 05/14/24 I am a: Patient What is your living situation today?: I have a steady place to live Within the past 12 months, did the food you bought not last and you didn't have the money to get more?: Sometimes True Within the past 12 months, did you worry whether your food would run out before you got money to buy more?: Sometimes True Do you have trouble paying for medicines?: No Do you have trouble getting transportation to medical appointments?: No Do you have trouble paying your heating and electricity bill?: No Do you have trouble taking care of your child, family member or friend?: No Do you have trouble with day-to-day activities such as bathing, preparing meals, shopping, managing finances, etc.?: No Are you currently unemployed and looking for a job?: No Are you interested in more education?: No Please select the resources that you would like help with: None Currently or been in a relationship where the following occur: No concerns reported THRIVE Score: 2 EYAD-7 AMB Questionnaire EYAD-7 Date EYAD - 7 assessed: 05/20/24 Source: Developed by Drs. Saroj Parmar, Cheri Grewal, Feng Harris and colleagues, with an educational brent from [employer]. Physical exam (Primary Care) Vital Signs: Last Vital Signs Pulse 64 02/25/25 16:11 Resp 16 02/25/25 16:11 BP 124/72 02/25/25 16:46 Pulse Ox 100 02/25/25 16:11 Oxygen Delivery Method Room Air 02/25/25 16:11 BMI result Body Mass Index 40.1 Tobacco/Smoking Status: Tobacco use Status Tobacco use date assessed 08/22/24 02/25/25 16:17 Patient Tobacco Use Status Never used Tobacco 02/25/25 16:17 e-Cigarette/Vaping Use Never Used 02/25/25 16:17 Thrive Assessment: Date of Thrive Assessment Date Thrive assessed 05/14/24 02/25/25 16:17 Currently or been in a relationship where the following occur: No concerns reported Coding Level of Care Code Est Pt Level 3 (63732) Diagnoses Diabetes E11.9 Assessment & Plan Assessment & Plan (1) Diabetes: Code(s): E11.9 - Type 2 diabetes mellitus without complications Category: Medical Plan . Orders: Orders Complete Blood Count Auto Diff Today E11.9 - Type 2 diabetes mellitus without complications Comprehensive [place]. Panel Fast Today E11.9 - Type 2 diabetes mellitus without complications UA CC w/rflx Micro + Cult Today E11.9 - Type 2 diabetes mellitus without complications Lipid Panel Today E11.9 - Type 2 diabetes mellitus without complications TSH reflex Free T4 Today E11.9 - Type 2 diabetes mellitus without complications Hemoglobin A1c Today E11.9 - Type 2 diabetes mellitus without complications
[2025-02-25 16:46] VITALS: BP 124/72
--- OUTSIDE RECORDS SUMMARY | 2025-02-25 20:57 | XMS_ITS | Clinical Summary ---
Author Organization [facility] Address [address] [place] [id number] Care Team Providers Care Supervisor Blueprinting And Photocopy Name Role Phone Arnel Colindres NP Primary Care Provider [phone] Afia Garrison RN Unavailable Unavailable Encounters Date Type Department Care Team Description 02/04/2025 3:00 PM EDT Health Coaching Visit [address] [address] Afia Garrison RN 12/24/[address] [address] Afia Garrison, DEJON from Last 3 Months Social History Tobacco Use Types Packs/Day Years Used Date Smoking Tobacco: Never Assessed Comments Unknown Sex and Gender Information Value Date Recorded Sex Assigned at Not on file Legal Sex Female 11:59 AM [facility] Gender Identity Not on file Sexual Orientation Not on file Last Filed Vital Signs Vital Sign Reading Time Taken Comments Blood Pressure - - Pulse - - Temperature - - Respiratory Rate - - Oxygen Saturation - - Inhaled Oxygen Concentration - - Weight 106 kg (232 lb 12.8 oz) 02/04/2025 3:53 P M EDT Height 157.5 cm (5' 2 ) 02/04/2025 3:53 PM EDT Body Mass Index 42.58 02/04/2025 3:53 PM EDT Plan of Treatment Upcoming Encounters Date Type Department Care Team (Late st Contact Info) Description 03/11/2025 9:30 AM EST Health Coaching Visit [address] [address] Afia Garrison, RN Health Maintenance Due Date Last Done Comments Hepatitis C Screening 1986 MMR Vaccines (1 of 1 - Standard series) 07/11/1987 PHQ-9 Depression Screen 1998 Varicella Vaccines (1 of 2 - 13+ 2-dose series) 1999 Annual Preventive Exam 2004 EYAD-7 Anxiety Screen 2004 DTaP,Tdap,and Td Vaccines (1 - Tdap) 2005 Hepatitis B Vaccines (1 of 3 - 19+ 3-dose series) 09/2005 Cervical Cancer Screening (Pap/HPV) 07/11/2007 COVID-19 Vaccine ( - season) 2025 Influenza Vaccine (#1) 2025 RSV Vaccine (SCDM) (1 - 1-dose 75+ series) 2061 Goals Goal Patient Goal Type Associated Problems Recent Progress Patient-Stated? Author Provide and review Metabolic Syndrome specific workbook (delete if not applicable) Care Plan Wellness Specific Goals No Afia Garrison RN Set initial healthcare provider visit Care Plan Wellness Specific Goals No Afia Garrison RN Take actions to address health maintenance gaps Care Plan Wellness Specific Goals No Afia Garrison RN Increase physical activity Care Plan Physical Activity Afia Silva RN Exercise X minutes on X days per week Care Plan Physical Activity No Afia Pisano RN Improve balance, strength or endurance Care Plan Physical Activity Afia Silva RN Start of Coaching Healthy Eating Survey: Generate baseline customer score Care Plan Healthy Eating Afia Silva RN End of Coaching Healthy Eating Survey: Generate customer endpoint score Care Plan Healthy Eating No Afia Garrison RN Eat less salt Care Plan Healthy Eating Afia Silva RN Eat less fast food Care Plan Healthy Eating Afia Silva RN Cut out extra servings at meals Care Plan Healthy Eating Afia Silva RN Drink less soda, juice, and other sugary beverages Care Plan Healthy Eating Afia Silva RN Eat fewer sweets and sugary snacks Care Plan Healthy Eating On track(2024 3:43 PM EDT) Afia Silva RN Note: Motivation (Select one of these): Motivation medium Confidence medium Decrease/monitor simple carbohydrate intake Care Plan Healthy Eating Afia Silva RN Follow the DASH diet Care Plan Healthy Eating Afia Silva RN Improve meal consistency Care Plan Healthy Eating Afia Silva RN Plan meals in advance Care Plan Healthy Eating Afia Silva RN Learn how to prepare healthy meals at home Care Plan Healthy Eating Afia Silva RN Eat more fruits and vegetables Care Plan Healthy Eating Afia Silva RN Start of Coaching HRQOL: Generate baseline customer score Care Plan Behavioral Health Afia Silva RN End of Coaching HRQOL: Generate endpoint customer score Care Plan Behavioral Health Afia Silva RN Start of Coaching Stress Assessment (Standard): Generate baseline customer score Care Plan Behavioral Health Afia Silva RN End of Coaching Stress Assessment (Standard): Generate endpoint customer score Care Plan Behavioral Health Afia Silva RN Improve your coping skills Care Plan Behavioral Health Afia Silva RN Improve problem solving skills Care Plan Behavioral Health Afia Silva RN Improve organizational/time management skills Care Plan Behavioral Health Afia Cortes RN Develop/expand support system Care Plan Behavioral Health Afia Silva RN Maintain relationships Care Plan Behavioral Health Afia Silva RN Decrease Alcohol Use Care Plan Behavioral Health Afia Silva RN Decrease Drug Use Care Plan Behavioral Health Afia Cortes RN Investigate stress management techniques Care Plan Behavioral Health Afia Silva RN Reduce job or personal stress through self management Care Plan Behavioral Health Afia Silva RN Patient will identify 3 triggers of depression Care Plan Behavioral Health Afia Silva RN Patient will better manage their depression Care Plan Behavioral Health Afia Silva RN Decrease signs and symptoms of depression Care Plan Behavioral Health Afia Silva RN Reduce overall tension and anxiety Care Plan Behavioral Health Afia Velasquez RN Client will be able to identify emotional and physiological signs of anxiety Care Plan Behavioral Health Afia Silva RN Learn and implement coping skills to increase tolerance to anxiety Care Plan Behavioral Health Afia Silva RN Consistently take Medications as Prescribed Care Plan Medications Afia Silva RN Healthy Weight management Care Plan Weight Afia Silva RN Improve Sleep Habits Care Plan Sleep Afia Silva RN Quit using tobacco (cigarettes, smokeless, etc) Care Plan Tobacco No Afia Garrison RN Reduce tobacco use (cigarettes, smokeless, etc) Care Plan Tobacco No Afia Garrison RN Work with tobacco cessation program Care Plan Tobacco No Afia Garrison RN Provide and Review condition specific workbook Care Plan Tobacco No Afia Garrison RN Provide and Review condition specific workbook Care Plan Diabetes Specific Goals No Afia Garrison RN Hemoglobin A1c <= 7.0 Care Plan Diabetes Specific Goals No Afia Garrison RN Record your blood sugar as directed Care Plan Diabetes Specific Goals No Afia Garrison RN OR Confirm that customer has HCP visit scheduled for follow-up Care Plan Diabetes Specific Goals No Afia Garrison RN Set initial healthcare provider visit Care Plan Physician Healthcare Visits No Afia Garrison RN Treatment Plan: Improve adherence Care Plan Physician Healthcare Visits No Afia Garrison RN Take actions to address health maintenance gaps Care Plan Prevention No Afia Garrison RN Improve knowledge/understan ding of condition(s) Care Plan Prevention No Afia Garrison RN Increase awareness/understan ding of conditions(s) triggers Care Plan Prevention No Afia Garrison RN Create relapse prevention/symptom action plan Care Plan Prevention No Afia Garrison RN Systolic BP <140 and Diastolic BP <90 Care Plan Hypertension Specific Goals No Afia Garrison RN OR Confirm that customer has HCP visit scheduled for follow-up Care Plan Hypertension Specific Goals No Afia Garrison RN Set initial healthcare provider visit Care Plan Physician Healthcare Visits No Afia Garrison RN Treatment Plan: Improve adherence Care Plan Physician Healthcare Visits No Afia Garrison RN Take actions to address health maintenance gaps Care Plan Prevention No Afia Garrison RN Improve knowledge/understan ding of condition(s) Care Plan Prevention No Afia Garrison RN Increase awareness/understan ding of conditions(s) triggers Care Plan Prevention No Afia Garrison RN Create relapse prevention/symptom action plan Care Plan Prevention No Afia Garrison RN Total cholesterol <= 200-239 mg/dL based on provider recommendations Care Plan Hyperlipidemia Specific Goals No Afia Garrison RN AND LDL cholesterol <= 100-129 mg/dL based on provider recommendations Care Plan Hyperlipidemia Specific Goals No Afia Garrison RN OR Confirm that customer has HCP visit scheduled for follow-up Care Plan Hyperlipidemia Specific Goals No Afia Garrison RN Set initial healthcare provider visit Care Plan Physician Healthcare Visits No Afia Garrison RN Treatment Plan: Improve adherence Care Plan Physician Healthcare Visits No Afia Garrison RN Take actions to address health maintenance gaps Care Plan Prevention No Afia Garrison RN Improve knowledge/understan ding of condition(s) Care Plan Prevention No Afia Garrison RN Increase awareness/understan ding of conditions(s) triggers Care Plan Prevention No Afia Garrison RN Create relapse prevention/symptom action plan Care Plan Prevention No Afia Garrison RN Additional Health Concerns Active Problems Noted Date Diagnosed Date Wellness Specific Goals 02/04/2025 Physical Activity 02/04/2025 Healthy Eating 02/04/2025 Behavioral Health 02/04/2025 Medications 02/04/2025 Weight 02/04/2025 Sleep 02/04/2025 Tobacco 02/04/2025 Diabetes Specific Goals 02/04/2025 Physician Healthcare Visits 02/04/2025 Prevention 02/04/2025 Hypertension Specific Goals 02/04/2025 Physician Healthcare Visits 02/04/2025 Prevention 02/04/2025 Hyperlipidemia Specific Goals 02/04/2025 Physician Healthcare Visits 02/04/2025 Prevention 02/04/2025 Care Teams Supervisor [employer]printing And Photocopy Relationship Specialty Start Date End Date Arnel Colindres NP [address] [place] [address] PCP - General NURSE PRACTITIONER 02/04/25 Afia Garrison RN Health Custom Dressmaker Registered Nurse 02/04/25
--- OUTSIDE RECORDS SUMMARY | 2025-02-25 20:57 | XMS_ITS ---
Care Plan Created on: February 25, 2025 ZariaChester [email or web address] : 1985 Sex: Female Author Organization [facility] Address [address] [place] [id number] Care Team Providers Care Special Events Assistant Name Role Phone Arnel Colindres NP Primary Care Provider [phone] Afia Garrison RN Unavailable Unavailable Additional Health Concerns Active Problems Noted Date Diagnosed Date Wellness Specific Goals 02/04/2025 Physical Activity 02/04/2025 Healthy Eating 02/04/2025 Behavioral Health 02/04/2025 Medications 02/04/2025 Weight 02/04/2025 Sleep 02/04/2025 Tobacco 02/04/2025 Diabetes Specific Goals 02/04/2025 Physician Healthcare Visits 02/04/2025 Prevention 02/04/2025 Hypertension Specific Goals 02/04/2025 Physician Healthcare Visits 02/04/2025 Prevention 02/04/2025 Hyperlipidemia Specific Goals 02/04/2025 Physician Healthcare Visits 02/04/2025 Prevention 02/04/2025 Goals Goal Patient Goal Type Associated Problems [...] Increase physical activity Care Plan Physical Activity No Afia Garrison RN Exercise X minutes on X days per week Care Plan Physical Activity No Afia Pisano RN Improve balance, strength or endurance Care Plan Physical Activity No Afia Garrison RN Start of Coaching Healthy Eating Survey: Generate baseline customer score Care Plan Healthy Eating No Afia Garrison RN End of Coaching Healthy Eating Survey: Generate customer endpoint score Care Plan Healthy Eating No Afia Garrison RN Eat less salt Care Plan Healthy Eating No Afia Garrison RN Eat less fast food Care Plan Healthy Eating No Afia Garrison RN Cut out extra servings at meals [...] manage their depression Care Plan Behavioral Health No Bladimir, Afia, RN Decrease signs and symptoms of depression Care Plan Behavioral Health No Afia Garrison RN Reduce overall tension and anxiety Care Plan Behavioral Health No Afia Farmer RN Client will be able to identify emotional and physiological signs of anxiety Care Plan Behavioral Health No Afia Garrison RN Learn and implement coping skills to increase tolerance to anxiety Care Plan Behavioral Health No Afia Garrison RN Consistently take Medications as Prescribed Care Plan Medications No Afia Garrison RN Healthy Weight management Care Plan Weight No Afia Garrison RN Improve Sleep Habits Care Plan Sleep No Afia Garrison RN Quit using tobacco (cigarettes, smokeless, etc) [...] ding of conditions(s) triggers Care Plan Prevention Afia Silva RN Create relapse prevention/symptom action plan Care Plan Prevention Afia Silva RN Total cholesterol <= 200-239 mg/dL based on provider recommendations Care Plan Hyperlipidemia Specific Goals No Afia Garrison RN AND LDL cholesterol <= 100-129 mg/dL based on provider recommendations Care Plan Hyperlipidemia Specific Goals No Afia Garrison RN OR Confirm that customer has HCP visit scheduled for follow-up Care Plan Hyperlipidemia Specific Goals Afia Silva RN Set initial healthcare provider visit Care Plan Physician Healthcare Visits Afia Silva RN Treatment Plan: Improve adherence Care Plan Physician Healthcare Visits Afia Silva RN Take actions to address health maintenance gaps Care Plan Prevention Afia Silva RN Improve knowledge/understan ding of condition(s) Care Plan Prevention Afia Silva RN Increase awareness/understan ding of conditions(s) triggers Care Plan Prevention Afia Silva RN Create relapse prevention/symptom action plan Care Plan Prevention Afia Silva RN Interventions Care Plan Interventions Intervention Entry Date Outcome (Patient) I will use reminder tools such as a pill box or medication log to help me keep track of what medications to take each day. 02/04/2025 (Patient) I will ensure that I have sufficient amounts of all of my medications. 02/04/2025 (Patient) I will be able to state that I understand how to I am supposed to take my medications. 02/04/2025 (Patient) I will be able to say what my medications are at the next review. 02/04/2025 Medication education 02/04/2025 Related Goals and Interventions Goal Associated Intervent ions Consistently take Medication s as Prescribed (Patient) I will use reminder tools such as a pill box or medication log to help me keep track of what medications to take each day.; (Patient) I will ensure that I have sufficient amounts of all of my medications.; (Patient) I will be able to state that I understand how to I am supposed to take my medications.; (Patient) I will be able to say what my medications are at the next review.; Medication education
== END 2025-02-25 16:48 | disposition home or self-care (01) ==
LOC: HO.HMCC 16:05
PROVIDERS: PCP Nurse Practitioner Family; Visit Provider Nurse Practitioner Family
DX: E11.9 Type 2 diabetes mellitus without complications (principal)

== ENCOUNTER 2025-05-07 09:28 | Outpatient (REF) | payer OTHER, SELFPAY ==
--- OUTSIDE RECORDS SUMMARY | 2025-05-07 09:49 | XMS_ITS ---
Care Plan Created on: May 07, 2025 Chester Encison : 1985 Sex: Female Author Organization [facility] Address [address] [place] [id number] Care Team Providers Care Coupon Clerk Name Role Phone Arnel Colindres NP Primary Care Provider [phone] Afia Garrison RN Unavailable Unavailable Additional Health [...] in advance Care Plan Healthy Eating Afia Silav RN Learn how to prepare healthy meals [...] customer score Care Plan Behavioral Health Afia iSlva RN Improve your coping skills Care Plan [...] Care Plan Hyperlipidemia Specific Goals No Afia Garrisno RN AND LDL cholesterol <= 100-129 mg/dL [...]
--- OUTSIDE RECORDS SUMMARY | 2025-05-07 09:49 | XMS_ITS | Clinical Summary ---
Author Organization [facility] Address [address] [place] [id number] Care Team Providers Care Power Plant Operator Apprentice Name Role Phone Arnel Colindres NP Primary Care Provider Afia Garrison RN Unavailable Unavailable Encounters Date Type Department Care Team Description 02/04/2025 3:00 PM EDT Health Coaching Visit [facility] Director Of Catering Sales [address] [phone] Afia Garrison RN from Last 3 Months Social History Tobacco Use Types Packs/Day Years Used Date Smoking Tobacco: Never Assessed Comments Unknown Sex and Gender Information Value Date Recorded Sex Assigned at Not on file Legal Sex Female 11:59 AM [facility] Gender Identity Not on file Sexual Orientation [...] 02/04/2025 3:53 PM EDT Plan of Treatment Health Maintenance Due Date Last Done Comments [...] Cervical Cancer Screening (Pap/HPV) 07/11/2007 COVID-19 Vaccine (1 - 2024- season) 2025 Influenza Vaccine (#1) 2025 RSV [...] maintenance gaps Care Plan Wellness Specific Goals Afia Silva RN Increase physical activity Care Plan Physical Activity Afia Silva RN Exercise X minutes on X days per week Care Plan Physical Activity Afia Vasquez RN Improve balance, strength or endurance Care Plan Physical Activity Afia Silva RN Start of Coaching Healthy Eating Survey: Generate baseline customer score Care Plan Healthy Eating Afia Silva RN End of Coaching Healthy Eating Survey: Generate customer endpoint score Care Plan Healthy Eating Afia Silva RN Eat less salt Care Plan Healthy [...] the DASH diet Care Plan Healthy Eating No Afia Garrison RN Improve meal consistency Care Plan Healthy Eating Afia Silva RN Plan meals in advance Care Plan Healthy Eating Afia Silva RN Learn how to prepare healthy meals at home Care Plan Healthy Eating fAia Silva RN Eat more fruits and vegetables [...] tobacco (cigarettes, smokeless, etc) Care Plan Tobacco Aifa Silva RN Reduce tobacco use (cigarettes, smokeless, etc) Care Plan Tobacco Afia Silva RN Work with tobacco cessation program Care Plan Tobacco No Afia Garrison RN Provide and Review condition specific workbook Care Plan Tobacco Afia Silva RN Provide and Review condition specific workbook Care Plan Diabetes Specific Goals Afia Silva RN Hemoglobin A1c <= 7.0 Care Plan Diabetes Specific Goals Afia Silva RN Record your blood sugar as directed [...] of conditions(s) triggers Care Plan Prevention No Bladimir, Afia, RN Create relapse prevention/symptom action plan Care [...] Healthcare Visits 02/04/2025 Prevention 02/04/2025 Care Teams Power Plant Operator Apprentice Relationship Specialty Start Date End Date Arnel Colindres NP [address] [place] [phone] PCP - General NURSE PRACTITIONER 02/04/25 Afia Garrison, DEJON Health Director Of Catering Sales Registered Nurse 02/04/25
[2025-05-07 09:53] LABS: MANUAL DIFF FLAG NO
[2025-05-07 09:59] LABS: Hematocrit 35.8 % (37.0-47.0); Hemoglobin 11.8 g/dl (12.0-16.0); Imm Gran Abs Auto 0.04 X10*3/uL (0.00-0.03); Imm Gran Pct Auto 0.6 % (0.0-0.4); Lymphocytes Absolute Auto 2.2 X10*3/uL (1.2-4.9); Mean Corpuscular HGB Conc 33.0 g/dl (31.0-35.0); Mean Corpuscular Hemoglobin 29.5 pg (27.0-33.0); Mean Corpuscular Volume 89.5 fL (80.0-98.0); NRBC Abs Auto 0.000 X10*3/uL (0.0-0.012); NRBC Pct Auto 0.0 /100WBC (0.0-0.2); Platelet Count 217 X10*3/uL (160-400); Red Blood Count 4.00 X10*6/uL (4.20-5.50); White Blood Count 6.9 X10*3/uL (4.8-10.8)
[2025-05-07 10:50] LABS: Alanine Aminotransferase 21 U/L (0-31); Albumin Level 3.9 g/dL (3.5-5.0); Alkaline Phosphatase 52 U/L (39-117); Anion Gap 10 (12-20); Aspartate Amino Transferase 20 U/L (5-31); Blood Urea Nitrogen 17 mg/dL (9-16); Calcium 8.8 mg/dL (8.4-10.2); Carbon Dioxide 26 mmol/L (22-29); Chloride 108 mmol/L (96-108); Cholesterol 211 mg/dL (<200); Estimated Glomerular Filt Rate > 60; HDL Cholesterol 45 mg/dL (>40); Potassium 4.2 mmol/L (3.3-5.1); Sodium 140 mmol/L (135-145); Total Protein 6.2 g/dL (6.5-8.0); Triglycerides 98 mg/dL (<150)
== END 2025-05-07 09:29 | disposition home or self-care (01) ==
LOC: HO.LAB 09:28
PROVIDERS: PCP Nurse Practitioner Family; Visit Provider Nurse Practitioner Family
DX: E11.9 Type 2 diabetes mellitus without complications (principal); E78.5 Hyperlipidemia, unspecified
CPT/HCPCS: 36415; 80053; 80061; 83036; 84443; 85025